=== PATIENT | female | born 1945 | race Caucasian/White ===

== ENCOUNTER → 2020-04-17 12:10 | Outpatient (CLI) | payer MEDICARE, BC, OTHER, SELFPAY ==
[2020-04-17 13:55] LABS: Alanine Aminotransferase 40 IU/L (<35); Albumin 3.8 g/dL (3.5-5.0); Alkaline Phosphatase 64 U/L (38-126); Aspartate Aminotransferase 39 IU/L (14-36); BUN Creatinine Ratio 17.6 (6-22); Bilirubin Total 0.2 mg/dL (0.2-1.3); Blood Urea Nitrogen 15 mg/dL (7-17); Calcium 9.6 mg/dL (8.4-10.2); Carbon Dioxide 32 mmol/L (22-32); Chloride 95 mmol/L (98-107); Estimated Glomerular Filt Rate > 60.0 mL/min (>60); Globulin 3.8 g/dL (1.7-4.1); Glucose 103 mg/dL (80-110); HEMOLYSIS < 15 (0-50); Potassium 4.7 mmol/L (3.4-5.1); Sodium 132 mmol/L (137-145); Total Protein 7.6 g/dL (6.3-8.2)
[2020-04-17 14:01] LABS: NT-proBNP (BNP-Adult 18+) 832 pg/mL (<450)
== END ==
PROVIDERS: PCP Internal Medicine; Referring Provider Internal Medicine Cardiovascular Disease; Visit Provider Internal Medicine Cardiovascular Disease
DX: I25.10 Atherosclerotic heart disease of native coronary artery without angina pectoris (principal); I50.22 Chronic systolic (congestive) heart failure
CPT/HCPCS: 36415; 80053; 83880

== ENCOUNTER 2020-05-18 11:15 | Emergency (ER) | payer MEDICARE, BC, OTHER, SELFPAY ==
--- NOTE | 2020-05-18 11:20 | DI.RAD.S_ITS ---
PROCEDURE: XR ABDOMEN MIN 2V INDICATIONS: poss ingestion of battery TECHNIQUE: 2 views of the abdomen were acquired. COMPARISON: None. FINDINGS: Surgical changes and devices: None. Bowel: No pneumoperitoneum. The bowel gas pattern is normal. There is a metallic structure noted near the midline in the pelvis which may potentially represent an ingested hearing aid. 2 other metallic structures may potentially be ingested, or may be from prior surgery. Soft tissues: No masses; visualized solid organ contours appear normal in size. No suspicious abdominal calcifications. Bones: No suspicious bony abnormalities. IMPRESSION: Question ingested hearing aid. Comment: CT abdomen and pelvis may be helpful to prove whether not there is a metallic hearing aid in the bowel. 2 other metallic structures may potentially be ingested, or may be related to prior surgery. Dictated by: Nolberto Torres M.D. on 05/18/2020 at 11:48 Approved by: Nolberto Torres M.D. on 05/18/2020 at 11:53
--- NOTE | 2020-05-18 11:21 | DI.RAD.S_ITS ---
PROCEDURE: XR CHEST 2V INDICATIONS: poss battery ingestion TECHNIQUE: 2 views of the chest were acquired. COMPARISON: None. FINDINGS: Surgical changes and devices: None. Lungs and pleura: Lungs are clear. No pleural effusions or pneumothorax. Mediastinum: Mediastinal contours are normal. Mild cardiomegaly. Bones and chest wall: No suspicious bony abnormalities. Soft tissues appear unremarkable. Severe bilateral shoulder degenerative change. IMPRESSION: Mild cardiomegaly. No evidence radiopaque foreign body in the chest or upper abdomen. Dictated by: Nolberto Torres M.D. on 05/18/2020 at 11:53 Approved by: Nolberto Torres M.D. on 05/18/2020 at 11:54
[2020-05-18 11:26] VITALS: BP 186/80; PULSE 62; RESP 18; TEMP 36.8; O2SAT 97
--- NOTE | 2020-05-18 12:10 | PC.NURSE ---
states she accidentally swallowed hearing aid. X ray revealed it is in distal colon. Denies abd pain / discomfort. Taking po fluids. No distress.
[2020-05-18 12:25] VITALS: BP 182/78; PULSE 66; RESP 18; O2SAT 98
--- NOTE | 2020-05-18 12:41 | ED_ITS ---
HPI - Skin/Abscess/Foreign Bdy [facility] Last Filed: 05/18/20 13:56> General Chief complaint: Skin/Abscess/Foreign Body Stated complaint: suspects she swallowed hearing aid Time Seen by Provider: 05/18/20 12:08 Source: patient and family Mode of arrival: Ambulatory Limitations: no limitations History of Present Illness HPI narrative: The patient is a 74-year-old female her granddaughter for chief complaint of a possibly swallowed hearing aid. She thinks she swallowed a by accident when she was taking her pills. She denies any fevers nausea vomiting diarrhea. She has had p.o. since. She has not taken her pills today because she is afraid to take them with her hearing aid possibly ingested. She denies any abdominal pain. Show overall feels really well and denies physical complaint. She is concerned about having swallowed the hearing aid. Review of Systems <[facility] - Last Filed: 05/18/20 13:56> Review of Systems Narrative: GENERAL: Denies chills, fatigue, malaise, fever, sweats. HEENT: Denies sinus pain, ear pain, sore throat, difficulty swallowing, dizziness. RESPIRATORY: Denies dyspnea, cough, wheezing, hemoptysis, sputum. CARDIOVASCULAR: Denies chest pain, palpitations, orthopnea, edema, GASTROINTESTINAL: See HPI : Denies dysuria, frequency, incontinence, hematuria, urinary retention. MUSCULOSKELETAL: denies weakness, joint pain, or bony pain SKIN: Denies rash, skin lesions, or other NEUROLOGIC: Denies weakness, headache, numbness, change in speech, confusion, seizures, incoordination. PSYCHIATRIC: No concerning psychosocial issues. 12 point review of systems is negative except for those stated above Patient History <WANDA Kuhn - Last Filed: 05/18/20 13:56> Social History Smoking Status: Never smoker Smoking Status: Never smoker Substance Use Type: does not use Exam <WANDA Kuhn - Last Filed: 05/18/20 13:56> Narrative Exam Narrative: GENERAL: This is a well-nourished, well-developed patient, in no acute distress HEAD: Atraumatic. Normocephalic. No temporal or scalp tenderness. EYES: Pupils equal round and reactive. Extraocular motions intact. No scleral icterus. No injection or drainage. ENT: Nose without bleeding, purulent drainage or septal hematoma. Wearing a mask Airway patent. NECK: Trachea midline. No JVD or lymphadenopathy. Supple, nontender, no meningeal signs. CARDIOVASCULAR: Regular rate and rhythm RESPIRATORY: Clear to auscultation. Breath sounds equal bilaterally. No wheezes, rales, or rhonchi. No cough. No increased respiratory effort. No accessory muscle use. GASTROINTESTINAL: Abdomen soft, non-tender, nondistended. No hepato- splenomegaly, or palpable masses. No guarding. Active bowel sounds all 4 quadrants. EXTREMITIES: No clubbing, cyanosis, or edema. No joint tenderness, effusion, or edema noted. BACK: Nontender without deformity or crepitance. No flank tenderness. NEURO: AOx3. SKIN: No rash or erythema on visible skin Initial Vital Signs Initial Vital Signs: Vital Signs Temperature 98.2 F 05/18/20 11:26 Pulse Rate 62 05/18/20 11:26 Respiratory Rate 18 05/18/20 11:26 Blood Pressure 186/80 H 05/18/20 11:26 Pulse Oximetry 97 05/18/20 11:26 <Janette Mack MD - Last Filed: 05/18/20 20:01> Initial Vital Signs Initial Vital Signs: Vital Signs Temperature 98.2 F 05/18/20 11:26 Pulse Rate 62 05/18/20 11:26 Respiratory Rate 18 05/18/20 11:26 Blood Pressure 186/80 H 05/18/20 11:26 Pulse Oximetry 97 05/18/20 11:26 Scores <RIANNA Kuhn - Last Filed: 05/18/20 13:56> GCS [place] coma scale eye opening: Spontaneous [place] coma scale verbal response: Orientated [place] coma scale motor response: Obey commands [place] coma scale total score: 15 Course <RIANNA Kuhn - Last Filed: 05/18/20 13:56> Orders Ordered: ED Orders 05/18/20 11:20 XR abdomen min 2V Stat 05/18/20 11:21 XR chest 2V Stat Vital Signs Vital signs: Vital Signs - 8 hr 05/18/20 12:25 Pulse Rate 66 Respiratory Rate 18 Blood Pressure 182/78 H Pulse Oximetry 98 <Janette Mack MD - Last Filed: 05/18/20 20:01> Orders Ordered: ED Orders 05/18/20 11:20 XR abdomen min 2V Stat 05/18/20 11:21 XR chest 2V Stat Vital Signs Vital signs: Vital Signs - 8 hr 05/18/20 12:25 Pulse Rate 66 Respiratory Rate 18 Blood Pressure 182/78 H Pulse Oximetry 98 MDM - Skin/Abscess/Foreign Bdy <AMY Kuhn- - Last Filed: 05/18/20 13:56> Imaging Data Abdominal x-ray: Radiologist's Impression: [address] [place] [id number] ReportSigned Patient: Linda Wei [facility]#: [id number]: 1945cct:[id number]/Sex: 74 / FDate of Service: 05/18/20Loc: EDAccession Number: [id number] Procedure: XR abdomen min 2V Ordering Provider: Janette Mack MD PROCEDURE: XR ABDOMEN MIN 2V INDICATIONS: poss ingestion of battery TECHNIQUE: 2 views of the abdomen were acquired. COMPARISON: None. FINDINGS: Surgical changes and devices: None. Bowel: No pneumoperitoneum. The bowel gas pattern is normal. There is a metallic structure noted near the midline in the pelvis which may potentially represent an ingested hearing aid. 2 other metallic structures may potentially be ingested, or may be from prior surgery. Soft tissues: No masses; visualized solid organ contours appear normal in size. No suspicious abdominal calcifications. Bones: No suspicious bony abnormalities. IMPRESSION: Question ingested hearing aid. Comment: CT abdomen and pelvis may be helpful to prove whether not there is a metallic hearing aid in the bowel. 2 other metallic structures may potentially be ingested, or may be related to prior surgery. Dictated by: Nolberto Torres M.D. on 05/18/2020 at 11:48 Approved by: Nolberto Torres M.D. on 05/18/2020 at 11:53 Chest x-ray: Radiologist's Impression: [address] [place] [id number] ReportSigned Patient: Linda Wei [facility]#: [id number]: [id number]:[id number]/Sex: 74 / FDate of Service: 05/18/20Loc: EDAccession Number: [id number] Procedure: XR chest 2V Ordering Provider: Janette Mack MD PROCEDURE: XR CHEST 2V INDICATIONS: poss battery ingestion TECHNIQUE: 2 views of the chest were acquired. COMPARISON: None. FINDINGS: Surgical changes and devices: None. Lungs and pleura: Lungs are clear. No pleural effusions or pneumothorax. Mediastinum: Mediastinal contours are normal. Mild cardiomegaly. Bones and chest wall: No suspicious bony abnormalities. Soft tissues appear unremarkable. Severe bilateral shoulder degenerative change. IMPRESSION: Mild cardiomegaly. No evidence radiopaque foreign body in the chest or upper abdomen. Dictated by: Nolberto Torres M.D. on 05/18/2020 at 11:53 Approved by: Nolberto Torres M.D. on 05/18/2020 at 11:54 MDM Narrative Medical decision making narrative: The patient is a 74-year-old female who presents with a chief complaint of the possibility of having swallowed a hearing aid. X-rays illustrate a hearing aid. X-rays reviewed with Dr. Mack, states nothing further to do. Discussed this at length with the patient and her family member. Discussed coming back to ER for acute concerns such as abdominal pain with fever, inability keep down fluids etcetera. Encouraged follow-up with primary care provider as well as yard attendant. No questions or concerns upon discharge states understanding return precautions as well as follow-up care. Discharge Plan Departure Patient Disposition: Home Clinical Impression: Foreign body, swallowed Qualifiers: Encounter type: initial encounter Qualified Code(s): T18.9XXA - Foreign body of alimentary tract, part unspecified, initial encounter Instructions: DI for Foreign Body, Swallowed-Adult Activity Restrictions/Additional Instructions: Thank you for trusting us with your care today Your x-ray confirms that you have swallowed your hearing aid. However it is low enough that it should pass with no problem. Please follow-up with primary care provider as well as your hearing aid provider Please come back to the emergency department for any acute concerns such as abdominal pain with fever, inability keep down fluids etcetera Referrals: Brittny Connor MD [Primary Care Provider] - <Janette Mack MD - Last Filed: 05/18/20 20:01> Cosign ED Attending Cosimaniature Attestation: I was immediately available in the dep artment for consultation throughout this patient's visit. I agree with documentation as above. Janette Mack MD
== END 2020-05-18 12:27 | disposition home or self-care (01) ==
PROVIDERS: Emergency Provider Nurse Practitioner Family; PCP Internal Medicine
DX: T18.9XXA Foreign body of alimentary tract, part unspecified, initial encounter (principal)
CPT/HCPCS: 71046; 74019; 99283; 99284

== ENCOUNTER 2020-06-03 19:00 | Emergency (ER) | payer MEDICARE, BC, OTHER, SELFPAY ==
[2020-06-03 19:05] VITALS: BP 118/54; PULSE 72; RESP 14; TEMP 36.7; O2SAT 97; BMI 20.9
[2020-06-03 19:10] VITALS: PULSE 73; O2SAT 99
--- NOTE | 2020-06-03 19:10 | DI.RAD.S_ITS ---
PROCEDURE: XR FOOT RT MIN 3V INDICATIONS: foot pain and swelling TECHNIQUE: 3 views of the foot were acquired. COMPARISON: None. FINDINGS: Bones: No fractures or dislocations. No suspicious bony lesions. Joint space narrowing and periarticular osteophyte formation throughout the tarsus and tarsometatarsal joints, as well as the interphalangeal joints of the digits, indicating osteoarthritis. Soft tissues: No tibiotalar joint effusion. Achilles tendon appears normal. IMPRESSION: Multifocal osteoarthritis. No acute fracture. No osseous lesion. If symptoms and/or clinical suspicion for pathology persist, further assessment with repeat, or advanced imaging (e.g., CT, MRI, or bone scan) may be helpful for further assessment. Dictated by: Kelin Casanova M.D. on 06/03/2020 at 19:25 Approved by: Kelin Casanova M.D. on 06/03/2020 at 19:26
[2020-06-03 19:30] VITALS: PULSE 69; O2SAT 96
--- NOTE | 2020-06-03 19:47 | ED.LOWEXIN ---
HPI - Extremity Injury (Lower) General Chief Complaint: Extremity Injury, Lower Stated Complaint: right foot is swelling Time Seen by Provider: 06/03/20 19:04 Source: patient Mode of arrival: Wheelchair Limitations: no limitations History of Present Illness HPI Narrative: 74-year-old female here for evaluation of swelling and redness and discomfort to her right foot. She states that last weekend she started noticing pain in her foot however this was after a period of time where she did some more walking than what she normally does during the day. She denies any specific trauma. Since that time things have been worsening. Describes the pain on the bottom of her foot and across the top of her foot. She has never had gout before. She is not having any fevers. There is no drainage from the area. It is to the point where she is having a difficult time walking. No other joint pain. Related Data Allergies Allergy/AdvReac Type Severity Reaction Status Date / Time ciprofloxacin [From Cipro] Allergy Verified 06/03/20 19:11 Sulfa (Sulfonamide Allergy Verified 06/03/20 19:11 Antibiotics) Review of Systems Constitutional Constitutional: Denies fever(s) and Denies headache(s) ENT Ears, Nose, Mouth, and Throat: Denies headache(s) Musculoskeletal Musculoskeletal: Denies numbness and Denies tingling Comments: Right foot pain Integumentary/Breasts Comments: Redness around the right foot Neurologic Neurologic: Denies headache(s), Denies numbness and Denies tingling Hematologic/Lymphatic On Anticoagulants: No Allergic/Immunologic Allergic/Immunologic: Denies urticaria Patient History Surgical History No pertinent past surgical history Social History Smoking Status: Never smoker Smoking Status: Never smoker alcohol intake frequency: holidays/special occasions only Substance Use Type: does not use Exam Initial Vital Signs Initial Vital Signs: Vital Signs Temperature 98.1 F 06/03/20 19:05 Pulse Rate 72 06/03/20 19:05 Respiratory Rate 14 06/03/20 19:05 Blood Pressure 118/54 L 06/03/20 19:05 Pulse Oximetry 97 06/03/20 19:05 Const General: cooperative and comfortable Cardio Pulses: dorsalis pedis present on the right Skin Other: Patient does have redness across the top of her right midfoot. It is warm to the touch. There are no breaks in the skin. There is no drainage from the area. No blisters. Extrem Other: She has tenderness to palpation along the midfoot on the dorsum and along the medial aspect on the bottom around the arch of her foot. Her ankle is unremarkable. Achilles tendon is unremarkable. Her calf is unremarkable. Toes are unremarkable. Psych Appearance: grossly normal and well kempt Course Orders Ordered: ED Orders 06/03/20 19:10 XR foot RT min 3V Stat Vital Signs Vital signs: Vital Signs - 8 hr 06/03/20 19:05 06/03/20 19:10 06/03/20 19:30 Temperature 98.1 F Pulse Rate 72 73 69 Respiratory Rate 14 Blood Pressure 118/54 L Pulse Oximetry 97 99 96 MDM - Extremity Injury (Lower) Imaging Data Extremity x-ray #1: Radiologist's Impression: [address] [id number] ReportSigned Patient: Linda Wei [facility]#: [id number]: [id number]:[id number]/Sex: 74 / FDate of Service: 06/03/20Loc: EDAccession Number: [id number] Procedure: XR foot RT min 3V Ordering Provider: Jeancarlos Baldwin D.O. PROCEDURE: XR FOOT RT MIN 3V INDICATIONS: foot pain and swelling TECHNIQUE: 3 views of the foot were acquired. COMPARISON: None. FINDINGS: Bones: No fractures or dislocations. No suspicious bony lesions. Joint space narrowing and periarticular osteophyte formation throughout the tarsus and tarsometatarsal joints, as well as the interphalangeal joints of the digits, indicating osteoarthritis. Soft tissues: No tibiotalar joint effusion. Achilles tendon appears normal. IMPRESSION: Multifocal osteoarthritis. No acute fracture. No osseous lesion. If symptoms and/or clinical suspicion for pathology persist, further assessment with repeat, or advanced imaging (e.g., CT, MRI, or bone scan) may be helpful for further assessment. Dictated by: Kelin Casanova M.D. on 06/03/2020 at 19:25 Approved by: Keiln Casanova M.D. on 06/03/2020 at 19:26 MDM Narrative Medical decision making narrative: Your x-ray shows no signs of fracture. She does have some redness and warmth over the area however feel that this is more related to inflammation rather than infection however I did talk with them about this and stated that if her symptoms worsen or do not improve then she should be re-evaluated for this. We did discuss the possibility of gout although she has never had gout in the past and her symptoms do seem to be associated with the midfoot and around the arch rather than her ankle joint or toe joints. Had a long discussion with the patient and her family at bedside regarding the symptoms. The plan will be is for her to continue with conservative treatment to include elevation and ice and anti-inflammatories. She is going to return if the redness worsens or she develops any new symptoms. I suspect that this is just a inflammation related to the increase in walking a couple days ago and an inflammation of her arthritis. She expressed understanding and agreement this plan. Discharge Plan Departure Patient Disposition: Home Clinical Impression: Acute pain of right foot Instructions: How To Perform RICE (Rest, Ice, Compress, Elevate) Activity Restrictions/Additional Instructions: The x-ray in the emergency department did not show any signs of fractures. You definitely have swelling and redness however I feel that this is most likely inflammation and not an infection. Despite this if the redness worsens or starts moving up your leg for few start develop fevers you need to return to the emergency department. Recommend that you keep your foot elevated. Ice it as needed. You can walk on it as tolerated. Also recommend she start on an anti-inflammatory such as Motrin or Naprosyn or Aleve or ibuprofen. Continue to take your reflux medications while your on this medicine. Contact your primary provider for follow-up. Referrals: Brittny Connor MD [Primary Care Provider] -
== END 2020-06-03 19:56 | disposition home or self-care (01) ==
PROVIDERS: Emergency Provider Emergency Medicine; PCP Internal Medicine
DX: M79.671 Pain in right foot (principal)
CPT/HCPCS: 73630; 99283

== ENCOUNTER 2021-04-24 10:26 | Emergency (ER) | payer MEDICARE, BC, OTHER, SELFPAY ==
[2021-04-24] VITALS (9 sets, daily range): BP systolic 106–171; BP diastolic 57–79; PULSE 60–78; RESP 13–22; TEMP 36.8; O2SAT 92–100; BMI 21.1
--- NOTE | 2021-04-24 10:53 | DI.RAD.S_ITS ---
PROCEDURE: XR CHEST 1V INDICATIONS: chest pain TECHNIQUE: One view of the chest was acquired. COMPARISON: [facility], CR, XR CHEST 2V, 05/18/2020, 11:26. FINDINGS: Surgical changes and devices: None. Lungs and pleura: There is hyperinflation and chronic interstitial changes without focal infiltrate, pleural effusion or pneumothorax. Mediastinum: Mediastinal contours appear normal. Heart size is normal. Atherosclerotic vascular calcification noted in the aortic arch. Bones and chest wall: No suspicious bony lesions. Overlying soft tissues appear unremarkable. Generalized decrease in osseous mineralization noted. IMPRESSION: Hyperinflation and chronic interstitial changes Approved by: Zak Alvarado M.D. on 04/24/2021 at 10:55
[2021-04-24 11:37] LABS: Add Manual Diff / Slide Review NO; Basophils Absolute Auto 0 /uL (0-100); Basophils Percent Auto 0.9 % (0-2); Eosinophils Absolute Auto 100 /uL (0-450); Eosinophils Percent Auto 3.4 % (2-4); Hematocrit 30.8 % (36-46); Hemoglobin 10.5 g/dL (12.0-16.0); Lymphocytes Absolute Auto 500 /uL (1100-4500); Lymphocytes Percent Auto 16.9 % (25-40); Mean Corpuscular HGB Conc 33.9 % (30-36); Mean Corpuscular Hemoglobin 33.4 PG (26-34); Mean Corpuscular Volume 98.3 fL (80-100); Monocytes Absolute Auto 400 /uL (0-900); Monocytes Percent Auto 13.3 % (3-14); Neutrophils Absolute Auto 1900 /uL (1500-7000); Neutrophils Percent Auto 65.5 % (50-75); Platelet Count 244 X10^3/uL (150-400); Red Blood Cell Count 3.14 X10^6/uL (4.0-5.2); Red Cell Distribution Width 14.5 % (11.6-14.8); White Blood Cell Count 2.9 X10^3/uL (4.5-11.0)
--- NOTE | 2021-04-24 12:07 | ED_ITS ---
HPI - General Adult General Chief complaint: Shortness of Breath/Dyspnea Stated complaint: high blood pressure, possible blood clot Time Seen by Provider: 04/24/21 10:55 Source: patient and family Mode of arrival: Wheelchair History of Present Illness HPI narrative: 75-year-old woman with a history of autoimmune disease, coronary artery disease with congestive heart failure, significant arthritis, COPD who was complaining about shortness of breath yesterday. She was seen at [facility] and given a nebulized treatment felt significantly better and went home. This morning she was complaining of being unsteady on her feet and her granddaughter, primary caregiver, notes that this has been worsening over the last couple of days. There is no specific focal deficit just increasing instability and near falls. Apparently she was called by her doctor this morning and told that she might have a blood clot in her lungs and recommended that she come to the emergency room for further evaluation. She complains of difficulty sleeping over the last few days because of increased leg jumpiness however this morning she is not noticing palpitations, dyspnea, chest pain, cough. Blood pressure is appropriate. She does not have any lower extremity edema and presents to the emergency room after being contacted by her physician earlier this morning. Records from that visit are not available. Related Data Home Medications Medication Instructions Recorded Confirmed albuterol sulfate 90 mcg/actuation 1 - 2 inh INHALATION Q4HR PRN 04/24/21 04/24/21 aerosol inhaler aspirin 81 mg tablet 81 mg PO DAILY 04/24/21 04/24/21 calcium carbonate 500 mg calcium 1,000 mg PO DAILY 04/24/21 04/24/21 (1,250 mg) tablet carboxymethylcellulose sodium 0.5 1 drp OPHTHALMIC (EYE) BID PRN 04/24/21 04/24/21 % eye drops in a dropperette (Refresh Plus) carvedilol 25 mg tablet 85 mg PO BIDAC 04/24/21 04/24/21 cevimeline 30 mg capsule 30 mg PO TID 04/24/21 04/24/21 cholecalciferol (vitamin D3) 50 50 mcg PO DAILY 04/24/21 04/24/21 mcg (2,000 unit) capsule (Vitamin D3) clotrimazole 10 mg ivan 10 mg MUCOUS MEMBRANE 5XD 04/24/21 04/24/21 fluticasone propionate 50 2 spray INTRANASAL BID 04/24/21 04/24/21 mcg/actuation nasal spray,suspension gabapentin 100 mg capsule 100 mg PO TID 04/24/21 04/24/21 geriatric multivitamin-min 1 tab PO DAILY 04/24/21 04/24/21 hydroxychloroquine 200 mg tablet 200 mg PO BID 04/24/21 04/24/21 ivermectin 1 % topical cream 1 applic TOPICAL DAILY 04/24/21 04/24/21 (Soolantra) lisinopril 40 mg tablet 40 mg PO DAILY 04/24/21 04/24/21 magnesium oxide 500 mg capsule 500 mg PO DAILY 04/24/21 04/24/21 mycophenolate mofetil 500 mg 500 mg PO BID 04/24/21 04/24/21 tablet (CellCept) naproxen 500 mg tablet 500 mg PO BID PRN 04/24/21 04/24/21 nitroglycerin 0.4 mg sublingual 0.4 mg SUBLINGUAL Q5-15M PRN 04/24/21 04/24/21 tablet omeprazole 20 mg tablet,delayed 20 mg PO DAILY 04/24/21 04/24/21 release pramoxine 1 % topical foam 1 applic NC BID PRN 04/24/21 04/24/21 spironolactone 25 mg tablet 25 mg PO DAILY 04/24/21 04/24/21 tumeric 100 mg-carmela 150 mg-olive 1 cap PO DAILY 04/24/21 04/24/21 50 mg-oreg 150 mg-caprylate capsule Allergies Allergy/AdvReac Type Severity Reaction Status Date / Time nickel Allergy Intermediate Redness of Verified 04/24/21 10:47 Skin ciprofloxacin [From Cipro] Allergy Verified 04/24/21 10:47 Sulfa (Sulfonamide Allergy Verified 04/24/21 10:47 Antibiotics) Review of Systems Review of Systems Narrative: Remainder of complete review of systems is otherwise unremarkable except for that included in the HPI. Patient History Medical History Arthritis Autoimmune disease Congestive heart failure COPD (chronic obstructive pulmonary disease) Hypertension Surgical History No pertinent past surgical history Social History Smoking Status: Never smoker Smoking Status: Never smoker alcohol intake frequency: holidays/special occasions only Substance Use Type: does not use Exam Initial Vital Signs Initial Vital Signs: Vital Signs Temperature 98.2 F 04/24/21 10:39 Pulse Rate 78 04/24/21 10:39 Respiratory Rate 18 04/24/21 10:39 Blood Pressure 127/60 04/24/21 10:39 Pulse Oximetry 100 04/24/21 10:39 General: Frail appearing but in no acute distress. Able to cooperate fully with history. HEENT: Moist mucous membranes, normal sclera with reactive pupils, Neck: No JVD, supple Respiratory: Lungs are clear to auscultation, no wheezing no rales no rhonchi. Full and symmetrical air movement Cardiac: Regular rate and rhythm no murmurs no bruits Abdomen: Soft, nontender, good bowel tones, no flank pain Skin: Warm and dry, no rashes Neurologic: Mild global weakness but otherwise Grossly neurologically intact with no obvious asymmetries or abnormalities Extremities: No trauma, well perfused, no lower extremity edema Psych: Cooperative, appropriate insight and affect Course Orders Ordered: ED Orders 04/24/21 10:53 XR chest 1V Stat EKG-12 Lead Stat 04/24/21 11:15 COVID19 -Nasal swab/Pre-Proc Stat Complete Blood Count AUTO DIFF Stat Comprehensive Metabolic Panel Stat D Dimer Stat Lipase Stat Magnesium Stat NT-proBNP (BNP-Adult 18+) Stat Partial Thromboplastin Time Stat Prothrombin Time INR Stat Troponin & CK Cardiac Panel Stat Vital Signs Vital signs: Vital Signs - 8 hr 04/24/21 10:39 04/24/21 11:13 04/24/21 11:15 Temperature 98.2 F Pulse Rate 78 66 65 Respiratory Rate 18 14 14 Blood Pressure 127/60 106/57 L Pulse Oximetry 100 98 98 04/24/21 11:30 Temperature Pulse Rate 63 Respiratory Rate 22 Blood Pressure 118/58 L Pulse Oximetry 96 Medical Decision Making Lab Data Result diagrams: 04/24/21 11:15 04/24/21 11:15 Labs: Lab Results 04/24/21 04/24/21 04/24/21 Range/Units 11:15 11:15 11:15 WBC 2.9 L (4.5-11.0) X10^3/uL RBC 3.14 L (4.0-5.2) X10^6/uL Hgb 10.5 L (12.0-16.0) g/dL Hct 30.8 L (36-46) % MCV 98.3 (80-100) fL MCH 33.4 (26-34) PG MCHC 33.9 (30-36) % RDW 14.5 (11.6-14.8) % Plt Count 244 (150-400) X10^3/uL Neut % (Auto) 65.5 (50-75) % Lymph % (Auto) 16.9 L (25-40) % Ashley % (Auto) 13.3 (3-14) % Eos % (Auto) 3.4 (2-4) % Baso % (Auto) 0.9 (0-2) % Neut # (Auto) 1900 (3204-3385) /uL Lymph # (Auto) 500 L (3137-0886) /uL Ashley # (Auto) 400 (0-900) /uL Eos # (Auto) 100 (0-450) /uL Baso # (Auto) 0 (0-100) /uL D-Dimer 666 H (<230) ng/mL Sodium 127 L (137-145) mmol/L Potassium 4.5 (3.4-5.1) mmol/L Chloride 96 L (98-107) mmol/L Carbon Dioxide 26 (22-32) mmol/L BUN 7 (7-17) mg/dL Creatinine 0.82 (0.52-1.04) mg/dL Estimated GFR > 60.0 (>60) mL/min BUN/Creatinine Ratio 8.5 (6-22) Glucose 95 (80-110) mg/dL Calcium 9.5 (8.4-10.2) mg/dL Magnesium 1.5 L (1.6-2.3) mg/dL Total Bilirubin 0.5 (0.2-1.3) mg/dL AST 27 (14-36) IU/L ALT 11 (<35) IU/L Alkaline Phosphatase 77 (38-126) U/L Total Creatine Kinase 45 (30-135) U/L CK-MB (CK-2) TNP CK-MB (CK-2) Rel Index TNP NT-Pro-B Natriuret Pep (<450) pg/mL Total Protein 7.1 (6.3-8.2) g/dL Albumin 4.0 (3.5-5.0) g/dL Globulin 3.1 (1.7-4.1) g/dL Albumin/Globulin Ratio 1.3 (1.0-2.8) Lipase 89 (23-300) U/L SARS-CoV-2 (PCR) (Negative) 04/24/21 04/24/21 Range/Units 11:15 11:15 WBC (4.5-11.0) X10^3/uL RBC (4.0-5.2) X10^6/uL Hgb (12.0-16.0) g/dL Hct (36-46) % MCV (80-100) fL MCH (26-34) PG MCHC (30-36) % RDW (11.6-14.8) % Plt Count (150-400) X10^3/uL Neut % (Auto) (50-75) % Lymph % (Auto) (25-40) % Ashley % (Auto) (3-14) % Eos % (Auto) (2-4) % Baso % (Auto) (0-2) % Neut # (Auto) (7712-5462) /uL Lymph # (Auto) (7355-3316) /uL Ashley # (Auto) (0-900) /uL Eos # (Auto) (0-450) /uL Baso # (Auto) (0-100) /uL D-Dimer (<230) ng/mL Sodium (137-145) mmol/L Potassium (3.4-5.1) mmol/L Chloride (98-107) mmol/L Carbon Dioxide (22-32) mmol/L BUN (7-17) mg/dL Creatinine (0.52-1.04) mg/dL Estimated GFR (>60) mL/min BUN/Creatinine Ratio (6-22) Glucose (80-110) mg/dL Calcium (8.4-10.2) mg/dL Magnesium (1.6-2.3) mg/dL Total Bilirubin (0.2-1.3) mg/dL AST (14-36) IU/L ALT (<35) IU/L Alkaline Phosphatase (38-126) U/L Total Creatine Kinase (30-135) U/L CK-MB (CK-2) CK-MB (CK-2) Rel Index NT-Pro-B Natriuret Pep 757 H (<450) pg/mL Total Protein (6.3-8.2) g/dL Albumin (3.5-5.0) g/dL Globulin (1.7-4.1) g/dL Albumin/Globulin Ratio (1.0-2.8) Lipase (23-300) U/L SARS-CoV-2 (PCR) Negative (Negative) Imaging Data Chest x-ray: Radiologist's Impression: FINDINGS:? ? Surgical changes and devices:? None.? ? Lungs and pleura:? There is hyperinflation and chronic interstitial changes without focal infiltrate, pleural effusion or pneumothorax. ? Mediastinum:? Mediastinal contours appear normal.? Heart size is normal.? Atherosclerotic vascular calcification noted in the aortic arch. ? Bones and chest wall:? No suspicious bony lesions.? Overlying soft tissues appear unremarkable.? Generalized decrease in osseous mineralization noted. ? IMPRESSION:? Hyperinflation and chronic interstitial changes ? ? ? Approved by: Zak Alvarado M.D. on 04/24/2021 at 10:55? [facility] Narrative Medical decision making narrative: 75-year-old woman who comes in today actually feeling well after brief bit of dyspnea yesterday. Her D-dimer was slightly elevated however still within normal limits for her age at 75 (upper limit would be 770). She has no clinical signs or symptoms of pulmonary embolism and further workup is not felt to be appropriate at this time. Remainder of labs are reassuring. She does mention that she has had some slight dysuria as of last night. Her urine will be sent for micro and if cultures positive she will be contacted at this point I do not think she has a bladder infection Her granddaughter also reports months of diarrhea, starting in April of last year. She uses Imodium fairly regularly and has seen multiple specialists for this. I have recommended that she continue with Imodium and continue with specialty follow-up. At this point there is no evidence of dramatic abnormality that would need hospitalization regarding the chronic diarrhea issue. Sodium level is slightly low she notes that she has been drinking more water and trying to restrict sodium of late. Encouraged her to drink when thirsty but not forcing excessive water. If she continues to have worsening gait instability then rechecking sodium within the next few days may be appropriate and this concerns shared with her granddaughter who understands. At this point she is safe for home discharge Discharge Plan Departure Patient Disposition: Home Clinical Impression: Hyponatremia Instructions: DI for Hyponatremia Activity Restrictions/Additional Instructions: Thank you for coming in today Your blood test looking for a D-dimer was slightly elevated but still within normal ranges when your age is considered. You do not have any clinical signs or symptoms of a blood clot today. Your salt level was slightly low. I would encourage you to drink when you are thirsty but do not force herself to drink excessive water. If you find that you are still feeling increasingly unsteady over the next week, following up with your regular doctor to make sure that the sodium level has improved would be appropriate We did look at your urine today. It does not look like you have a bladder infection however if the culture does show a bladder infection you will be called with appropriate antibiotic prescription given. If you have worsening symptoms, please feel free to return to the ER Prescriptions: No Action albuterol sulfate 90 mcg/actuation HFA aerosol inhaler 1 - 2 inh INHALATION Q4HR PRN (Reason: Wheezing) 0RF Label Comments: Inhale 1-2 puff using inhaler every four hours as needed clotrimazole 10 mg Ivan 10 mg MUCOUS MEMBRANE 5XD 0RF Rx Instructions: up to 5 x day, do not chew carvedilol 25 mg tablet 85 mg PO BIDAC 0RF Label Comments: TAKE 1 TABLET BY MOUTH TWICE DAILY WITH MEALS spironolactone 25 mg Tablet 25 mg PO DAILY 0RF mycophenolate mofetil [CellCept] 500 mg Tablet 500 mg PO BID 0RF calcium carbonate [Calcium 500] 500 mg calcium (1,250 mg) Tablet 1,000 mg PO DAILY 0RF cevimeline 30 mg capsule 30 mg PO TID 0RF Label Comments: TAKE 1 CAPSULE BY MOUTH THREE TIMES DAILY nitroglycerin 0.4 mg Tablet, Sublingual 0.4 mg SUBLINGUAL Q5-15M PRN (Reason: Angina) 0RF Rx Instructions: do not exceed 3 doses per episode aspirin 81 mg Tablet 81 mg PO DAILY 0RF gabapentin 100 mg capsule 100 mg PO TID 0RF Label Comments: TAKE 1 CAPSULE BY MOUTH THREE TIMES DAILY. hydroxychloroquine 200 mg tablet 200 mg PO BID 0RF lisinopril 40 mg Tablet 40 mg PO DAILY 0RF fluticasone propionate 50 mcg/actuation spray,suspension 2 spray INTRANASAL BID 0RF Label Comments: USE 2 SPRAYS IN EACH NOSTRIL EVERY DAY naproxen 500 mg Tablet 500 mg PO BID PRN (Reason: pain / discomfort) 0RF Refresh Plus 0.5 % Dropperette 1 drp OPHTHALMIC (EYE) BID PRN (Reason: Dry Eyes) 0RF geriatric multivitamin-min Tablet 1 tab PO DAILY 0RF pramoxine 1 % Foam 1 applic NC BID PRN (Reason: hemmroid) 0RF magnesium oxide 500 mg Capsule 500 mg PO DAILY 0RF omeprazole 20 mg Tablet,Delayed Release (Dr/Ec) 20 mg PO DAILY 0RF cholecalciferol (vitamin D3) [Vitamin D3] 50 mcg (2,000 unit) Capsule 50 mcg PO DAILY 0RF ivermectin [Soolantra] 1 % Cream 1 applic TOPICAL DAILY 0RF wyzzgpa-wlaa-piqdv-oreg-capryl 100 mg-150 mg- 50 mg-150 mg Capsule 1 cap PO DAILY 0RF Referrals: Brittny Connor MD [Primary Care Provider] -
[2021-04-24 12:11] LABS: COVID19 -Nasal RAPID Negative (Negative)
[2021-04-24 12:20] LABS: Alanine Aminotransferase 11 IU/L (<35); Albumin Globulin Ratio 1.3 (1.0-2.8); Alkaline Phosphatase 77 U/L (38-126); Aspartate Aminotransferase 27 IU/L (14-36); BUN Creatinine Ratio 8.5 (6-22); Bilirubin Total 0.5 mg/dL (0.2-1.3); Blood Urea Nitrogen 7 mg/dL (7-17); Calcium 9.5 mg/dL (8.4-10.2); Carbon Dioxide 26 mmol/L (22-32); Chloride 96 mmol/L (98-107); Creatine Kinase 45 U/L (30-135); Estimated Glomerular Filt Rate > 60.0 mL/min (>60); Globulin 3.1 g/dL (1.7-4.1); Glucose 95 mg/dL (80-110); HEMOLYSIS < 15 (0-50); Lipase 89 U/L (23-300); Magnesium 1.5 mg/dL (1.6-2.3); Potassium 4.5 mmol/L (3.4-5.1); Sodium 127 mmol/L (137-145); Total Protein 7.1 g/dL (6.3-8.2)
[2021-04-24 12:24] LABS: D Dimer 666 ng/mL (<230)
[2021-04-24 12:29] LABS: NT-proBNP (BNP-Adult 18+) 757 pg/mL (<450)
[2021-04-24 12:31] LABS: Troponin I 0.014 ng/mL (0.01-0.034)
[2021-04-24 12:34] LABS: INR 1.1 (0.9-1.3); Prothrombin Time 12.3 SECONDS (10.1-12.7)
[2021-04-24 12:37] LABS: PTT Partial Thromboplastin Tim 30 SECONDS (26.4-36.2)
== END 2021-04-24 13:04 | disposition home or self-care (01) ==
PROVIDERS: Emergency Provider Emergency Medicine; PCP Internal Medicine
DX: E87.1 Hypo-osmolality and hyponatremia (principal); Z20.822 Contact with and (suspected) exposure to COVID-19
CPT/HCPCS: 36415; 71045; 80053; 81003; 82550; 83690; 83735; 83880; 84484; 85025; 85379; 85610; 85730; 87635; 93005; 99284; C9803

== ENCOUNTER 2021-06-03 17:18 | Inpatient (IN) | payer MEDICARE, BC, OTHER, SELFPAY ==
[2021-06-03] VITALS (12 sets, daily range): BP systolic 93–140; BP diastolic 61–77; PULSE 66–128; RESP 16–39; TEMP 36.5–37.2; O2SAT 95–99; BMI 20.2
[2021-06-03 17:57] LABS: Bacteria Urine Occasional (0-1); RBC Urine 5-10/HPF (0-5/HPF); WBC Urine 1-5/HPF (0-5/HPF)
--- NOTE | 2021-06-03 18:19 | DI.RAD.S_ITS ---
PROCEDURE: XR CHEST 1V INDICATIONS: altered, weak TECHNIQUE: One view of the chest was acquired. COMPARISON: [facility], CT, CT HIGH RESOLUTION CHEST, 09/15/2020, 14:14. [facility], CR, XR CHEST 1V, 04/24/2021, 11:27. [facility], CR, XR CHEST 2V, 05/18/2020, 11:26. FINDINGS: Surgical changes and devices: None. Lungs and pleura: Lungs appear clear. Prominent lung volumes. No pleural effusions or pneumothorax. Mediastinum: Mediastinal contours appear unchanged. Heart size is prominent. Bones and chest wall: No suspicious bony lesions. Overlying soft tissues appear unremarkable. IMPRESSION: Prominent lung volumes. Lungs appear clear. Prominent heart size. Dictated by: Mikel Bustos M.D. on 06/03/2021 at 19:21 Approved by: Mikel Bustos M.D. on 06/03/2021 at 19:24
--- NOTE | 2021-06-03 18:19 | DI.CT.S_ITS ---
PROCEDURE: CT HEAD/BRAIN WO CON INDICATIONS: altered TECHNIQUE: Noncontrast 4.5 mm thick angled axial sections acquired from the foramen magnum to the vertex, with coronal and sagittal reformats. For radiation dose reduction, the following was used: automated exposure control, adjustment of mA and/or kV according to patient size. COMPARISON: None. FINDINGS: Image quality: Excellent. CSF spaces: Basal cisterns are patent. No extra-axial fluid collections. Ventricles are normal in size and shape. Brain: No midline shift. No intracranial masses or hemorrhage. No area of hypodensity in a large vascular distribution to suggest acute infarction. Periventricular hypodensity consistent with chronic microvascular ischemic change. Age-related parenchymal loss. Skull and face: Calvarium and visualized facial bones are intact, without suspicious lesions. Sinuses: Visualized sinuses and mastoids are clear. IMPRESSION: No acute intracranial abnormality. Dictated by: Mikel Bustos M.D. on 06/03/2021 at 18:46 Approved by: Mikel Bustos M.D. on 06/03/2021 at 18:48
--- NOTE | 2021-06-03 18:21 | ED_ITS ---
HPI - Altered Mental Status General Chief Complaint: Altered Mental Status Stated Complaint: UTI, delusional Time Seen by Provider: 06/03/21 18:04 Source: patient Mode of arrival: Wheelchair History of Present Illness HPI narrative: 75-year-old female Nonsmoker with history of COPD, hypertension, congestive heart failure presents with family for the evaluation of altered mental status over the past few days which is demonstrated by auditory and visual hallucinations. She lives at home alone but has had family staying with her for the past few days because she has been so confused and acting inappropriately. She is in the process of being treated for urinary tract infection with nitrofurantoin. She has had subjective fever and perhaps chills. She has had nausea but denies any vomiting. She denies any runny nose, sore throat or cough. She has no chest pain or shortness of breath. Though she has demonstrated evidence of dementia over the past year there has been a rapid change management administrator the past few days Related Data Home Medications Medication Instructions Recorded Confirmed albuterol sulfate 90 mcg/actuation 1 - 2 inh INHALATION Q4HR PRN 04/24/21 aerosol inhaler aspirin 81 mg tablet 81 mg PO DAILY 04/24/21 06/03/21 calcium carbonate 500 mg calcium 1,000 mg PO DAILY 04/24/21 06/03/21 (1,250 mg) tablet carboxymethylcellulose sodium 0.5 1 drp OPHTHALMIC (EYE) BID PRN 04/24/21 06/03/21 % eye drops in a dropperette (Refresh Plus) carvedilol 25 mg tablet 85 mg PO BIDAC 04/24/21 06/03/21 cevimeline 30 mg capsule 30 mg PO TID 04/24/21 06/03/21 cholecalciferol (vitamin D3) 50 50 mcg PO DAILY 04/24/21 06/03/21 mcg (2,000 unit) capsule (Vitamin D3) clotrimazole 10 mg ivan 10 mg MUCOUS MEMBRANE 5XD 04/24/21 06/03/21 fluticasone propionate 50 2 spray INTRANASAL BID 04/24/21 06/03/21 mcg/actuation nasal spray,suspension gabapentin 100 mg capsule 100 mg PO TID 04/24/21 06/03/21 geriatric multivitamin-min 1 tab PO DAILY 04/24/21 06/03/21 hydroxychloroquine 200 mg tablet 200 mg PO BID 04/24/21 06/03/21 ivermectin 1 % topical cream 1 applic TOPICAL DAILY 04/24/21 06/03/21 (Soolantra) lisinopril 40 mg tablet 40 mg PO DAILY 04/24/21 06/03/21 magnesium oxide 500 mg capsule 500 mg PO DAILY 04/24/21 06/03/21 mycophenolate mofetil 500 mg 500 mg PO BID 04/24/21 06/03/21 tablet (CellCept) nitroglycerin 0.4 mg sublingual 0.4 mg SUBLINGUAL Q5-15M PRN 04/24/21 06/03/21 tablet omeprazole 20 mg tablet,delayed 20 mg PO DAILY 04/24/21 06/03/21 release pramoxine 1 % topical foam 1 applic OR BID PRN 04/24/21 06/03/21 spironolactone 25 mg tablet 25 mg PO DAILY 04/24/21 06/03/21 tumeric 100 mg-carmela 150 mg-olive 1 cap PO DAILY 04/24/21 06/03/21 50 mg-oreg 150 mg-caprylate capsule nitrofurantoin 100 mg PO 06/03/21 monohydrate/macrocrystals 100 mg capsule Allergies Allergy/AdvReac Type Severity Reaction Status Date / Time nickel Allergy Intermediate Redness of Verified 04/24/21 10:47 Skin ciprofloxacin [From Cipro] Allergy Verified 04/24/21 10:47 Sulfa (Sulfonamide Allergy Verified 04/24/21 10:47 Antibiotics) Review of Systems Review of Systems Narrative: GENERAL: Denies chills, fatigue, malaise, fever, sweats. HEENT: Denies sinus pain, ear pain, sore throat, difficulty swallowing, dizz iness. RESPIRATORY: Denies dyspnea, cough, wheezing, hemoptysis, sputum. CARDIOVASCULAR: Denies chest pain, palpitations, orthopnea, edema, GASTROINTESTINAL: Denies nausea, vomiting, abdominal pain, diarrhea, constipation, melena. : Denies dysuria, frequency, incontinence, hematuria, urinary retention. MUSCULOSKELETAL: denies weakness, joint pain, or bony pain SKIN: Denies rash, skin lesions, or other NEUROLOGIC: Denies weakness, headache, numbness, change in speech, confusion, seizures, incoordination. PSYCHIATRIC: No concerning psychosocial issues. 12 point review of systems is negative except for those stated above Patient History Medical History Arthritis Autoimmune disease Congestive heart failure COPD (chronic obstructive pulmonary disease) Hypertension Surgical History No pertinent past surgical history Social History household members: none Smoking Status: Never smoker alcohol intake: former Smoking Status: Never smoker alcohol intake frequency: holidays/special occasions only Substance Use Type: does not use Exam Narrative Exam Narrative: GENERAL: [75 year old patient appears stated age. Frail and weak, confused. GCS 14 HEAD: Atraumatic. Normocephalic. EYES: Pupils equal round and reactive. Extraocular motions intact. No scleral icterus. No injection or drainage. ENT: Dry mucous membranes Nose without bleeding, purulent drainage. Throat without erythema, tonsillar hypertrophy or exudate. Airway patent. NECK: Trachea midline. Non tender CARDIOVASCULAR: Regular rate and rhythm without murmurs, gallops, or rubs. RESPIRATORY: Clear to auscultation. Breath sounds equal bilaterally. No wheezes, rales, or rhonchi. GASTROINTESTINAL: Abdomen soft, non-tender, nondistended. EXTREMITIES: No edema or joint tenderness. BACK: Nontender without deformity or crepitance. No flank tenderness. NEURO: Cranial nerves 2-12 grossly intact SKIN: No rash or erythema of visible areas Initial Vital Signs Initial Vital Signs: Vital Signs Temperature 98.9 F 06/03/21 17:24 Pulse Rate 75 06/03/21 17:24 Respiratory Rate 16 06/03/21 17:24 Blood Pressure 140/77 06/03/21 17:24 Pulse Oximetry 99 06/03/21 17:24 Course Orders Ordered: ED Orders 06/03/21 19:53 XR hand LT min 3V Stat 06/03/21 20:00 COVID19 - ADMIT (TUBING MACHINE TENDER swab/PCR) Stat Acetaminophen (Acetaminophen 325 Mg Tablet) 650 mg PO Q6HR PRN PRN Reason: pain Last Admin: 06/03/21 22:48 Dose: 650 mg Documented by: PHIL Enoxaparin Sodium (Enoxaparin 40 Mg/0.4 Ml Syringe) 40 mg SUBCUT DAILY JANNA Sodium Chloride (Normal Saline 0.9%) 1,000 mls @ 150 mls/hr IV CONT JANNA Last Admin: 06/03/21 22:48 Dose: 150 mls/hr Documented by: Infusion: 06/03/21 22:48 Dose: 0 mls/hr Documented by: Admin: 06/03/21 18:38 Dose: 150 mls/hr Documented by: PREET Ceftriaxone Sodium 1,000 mg/ (Sodium Chloride) 100 mls @ 200 mls/hr IV Q24H JANNA Last Infusion: 06/04/21 00:02 Dose: 0 mls/hr Documented by: Admin: 06/03/21 22:50 Dose: 200 mls/hr Documented by: PHIL Ondansetron HCl (Ondansetron 4 Mg/2 Ml Inj) 4 mg IV Q8HR PRN PRN Reason: Nausea And Vomiting Vital Signs Vital signs: Vital Signs - 8 hr 06/03/21 20:30 06/03/21 21:00 Pulse Rate 70 71 Respiratory Rate 30 H 30 H Pulse Oximetry 96 97 MDM - Altered Mental Status Lab Data Result diagrams: 06/03/21 18:22 06/03/21 18:22 Labs: Lab Results 06/03/21 06/03/21 06/03/21 Range/Units 17:49 18:22 18:22 WBC 5.3 (4.5-11.0) X10^3/uL RBC 2.80 L (4.0-5.2) X10^6/uL Hgb 9.5 L (12.0-16.0) g/dL Hct 27.7 L (36-46) % MCV 99.0 (80-100) fL MCH 33.7 (26-34) PG MCHC 34.1 (30-36) % RDW 13.1 (11.6-14.8) % Plt Count 233 (150-400) X10^3/uL Neut % (Auto) 68.7 (50-75) % Lymph % (Auto) 14.4 L (25-40) % [place] % (Auto) 12.5 (3-14) % Eos % (Auto) 3.7 (2-4) % Baso % (Auto) 0.7 (0-2) % Neut # (Auto) 3600 (5539-0382) /uL Lymph # (Auto) 800 L (9992-7054) /uL [place] # (Auto) 700 (0-900) /uL Eos # (Auto) 200 (0-450) /uL Baso # (Auto) 0 (0-100) /uL Sodium 129 L (137-145) mmol/L Potassium 4.4 (3.4-5.1) mmol/L Chloride 95 L (98-107) mmol/L Carbon Dioxide 27 (22-32) mmol/L BUN 14 (7-17) mg/dL Creatinine 1.01 (0.52-1.04) mg/dL Estimated GFR 53.1 L (>60) mL/min BUN/Creatinine Ratio 13.9 (6-22) Glucose 95 (80-110) mg/dL Lactate (0.7-2.1) mmol/L Calcium 8.9 (8.4-10.2) mg/dL Total Bilirubin 0.2 (0.2-1.3) mg/dL AST 26 (14-36) IU/L ALT 11 (<35) IU/L Alkaline Phosphatase 68 (38-126) U/L Total Creatine Kinase 55 (30-135) U/L CK-MB (CK-2) TNP CK-MB (CK-2) Rel Index TNP Troponin I < 0.012 (0.01-0.034) ng/mL Total Protein 6.9 (6.3-8.2) g/dL Albumin 3.9 (3.5-5.0) g/dL Globulin 3.0 (1.7-4.1) g/dL Albumin/Globulin Ratio 1.3 (1.0-2.8) TSH (0.47-4.68) uIU/mL Prolactin 12.6 (3.0-18.6) ng/mL Urine RBC 5-10/hpf H (0-5/HPF) Urine WBC 1-5/hpf (0-5/HPF) Urine Bacteria Occasional (0-1) (None) Ur Culture Indicated? Culture not indicate Salicylates < 1.0 (<20) mg/dL Acetaminophen < 10 L (10-30) ug/mL Ethyl Alcohol < 10 ( - 10) mg/dL SARS-CoV-2 (PCR) (Negative) 06/03/21 06/03/21 06/03/21 Range/Units 18:22 18:22 20:00 WBC (4.5-11.0) X10^3/uL RBC (4.0-5.2) X10^6/uL Hgb (12.0-16.0) g/dL Hct (36-46) % MCV (80-100) fL MCH (26-34) PG MCHC (30-36) % RDW (11.6-14.8) % Plt Count (150-400) X10^3/uL Neut % (Auto) (50-75) % Lymph % (Auto) (25-40) % [place] % (Auto) (3-14) % Eos % (Auto) (2-4) % Baso % (Auto) (0-2) % Neut # (Auto) (1785-5950) /uL Lymph # (Auto) (8125-1926) /uL Hudson # (Auto) (0-900) /uL Eos # (Auto) (0-450) /uL Baso # (Auto) (0-100) /uL Sodium (137-145) mmol/L Potassium (3.4-5.1) mmol/L Chloride (98-107) mmol/L Carbon Dioxide (22-32) mmol/L BUN (7-17) mg/dL Creatinine (0.52-1.04) mg/dL Estimated GFR (>60) mL/min BUN/Creatinine Ratio (6-22) Glucose (80-110) mg/dL Lactate 1.0 (0.7-2.1) mmol/L Calcium (8.4-10.2) mg/dL Total Bilirubin (0.2-1.3) mg/dL AST (14-36) IU/L ALT (<35) IU/L Alkaline Phosphatase (38-126) U/L Total Creatine Kinase (30-135) U/L CK-MB (CK-2) CK-MB (CK-2) Rel Index Troponin I (0.01-0.034) ng/mL Total Protein (6.3-8.2) g/dL Albumin (3.5-5.0) g/dL Globulin (1.7-4.1) g/dL Albumin/Globulin Ratio (1.0-2.8) TSH 2.65 (0.47-4.68) uIU/mL Prolactin (3.0-18.6) ng/mL Urine RBC (0-5/HPF) Urine WBC (0-5/HPF) Urine Bacteria (None) Ur Culture Indicated? Salicylates (<20) mg/dL Acetaminophen (10-30) ug/mL Ethyl Alcohol ( - 10) mg/dL SARS-CoV-2 (PCR) Negative (Negative) Point of Care Testing Glucose POC 75 Urine Dip Bedside Urine Glucose Negative Bedside Urine Bilirubin - Negative Bedside Urine Ketone - Negative Urine Specific [place] 1.015 Bedside Urine Occult Blood - Negative Bedside Urine pH 6.0 Bedside Urine Protein - Negative Bedside Urine Urobilinogen +/- 1mg Bedside Urine Nitrite - Negative Bedside Urine Leukocytes +/- [address] scan - head: Radiologist's Impression: Launch?[address] [address] [address] Scan Report Signed Patient: Linda Wei MR#: [id number] : 1945 Acct:[id number] Age/Sex: 75 / F Date of Service: 06/03/21 Loc: ED Accession Number: [id number] ?? Procedure: CT head/brain wo con Ordering Provider: Hadley Warner D.O. PROCEDURE:? CT HEAD/BRAIN WO CON ? INDICATIONS:? altered ? TECHNIQUE:? Noncontrast 4.5 mm thick angled axial sections acquired from the foramen magnum to the vertex, with coronal and sagittal reformats.? For radiation dose reduction, the following was used:? automated exposure control, adjustment of mA and/or kV according to patient size.? ? COMPARISON:? None. ? FINDINGS:? Image quality:? Excellent.? ? CSF spaces:? Basal cisterns are patent.? No extra-axial fluid collections.? Ventricles are normal in size and shape.? ? Brain:? No midline shift.? No intracranial masses or hemorrhage.? No area of hypodensity in a large vascular distribution to suggest acute infarction. Periventricular hypodensity consistent with chronic microvascular ischemic change. Age-related parenchymal loss. ? Skull and face:? Calvarium and visualized facial bones are intact, without suspicious lesions.? ? Sinuses:? Visualized sinuses and mastoids are clear.? ? IMPRESSION:? No acute intracranial abnormality. ? ? Dictated by: Mikel Bustos M.D. on 06/03/2021 at 18:46 ? ? Approved by: Mikel Bustos M.D. on 06/03/2021 at 18:48 ? MDM Narrative Medical decision making narrative: Patient presents with family who were concerned about her rapid deterioration over the past few days. Though she has had a slow down slide, likely due to early dementia over the past year there has been a significant change management administrator the past few days. Historically she lives at home alone and over the past few days she has had visual and auditory hallucinations has been quite confused and is vastly departed from her baseline. There are no focal findings and CT of head shows no stroke. She is being treated with nitrofurantoin for a UTI which would certainly be contributing to her acute delirium and metabolic encephalopathy. There is no other obviously reversible cause Discharge Plan Departure Patient Disposition: Admitted as Observation Clinical Impression: Acute delirium Admit Date/Time: 06/03/21 21:08 Admit Provider: Colton Flor
[2021-06-03] MEDS: SODIUM CHLORIDE 0.9% 1,000 ML 150 ML IV ×2 (18:38→22:48)
[2021-06-03 18:49] LABS: Add Manual Diff / Slide Review NO; Basophils Absolute Auto 0 /uL (0-100); Basophils Percent Auto 0.7 % (0-2); Eosinophils Absolute Auto 200 /uL (0-450); Eosinophils Percent Auto 3.7 % (2-4); Hematocrit 27.7 % (36-46); Hemoglobin 9.5 g/dL (12.0-16.0); Lymphocytes Absolute Auto 800 /uL (1100-4500); Lymphocytes Percent Auto 14.4 % (25-40); Mean Corpuscular HGB Conc 34.1 % (30-36); Mean Corpuscular Hemoglobin 33.7 PG (26-34); Monocytes Absolute Auto 700 /uL (0-900); Monocytes Percent Auto 12.5 % (3-14); Neutrophils Absolute Auto 3600 /uL (1500-7000); Neutrophils Percent Auto 68.7 % (50-75); Platelet Count 233 X10^3/uL (150-400); Red Cell Distribution Width 13.1 % (11.6-14.8); White Blood Cell Count 5.3 X10^3/uL (4.5-11.0)
[2021-06-03 18:54] LABS: Acetaminophen < 10 ug/mL (10-30); Alanine Aminotransferase 11 IU/L (<35); Albumin 3.9 g/dL (3.5-5.0); Albumin Globulin Ratio 1.3 (1.0-2.8); Alkaline Phosphatase 68 U/L (38-126); Aspartate Aminotransferase 26 IU/L (14-36); BUN Creatinine Ratio 13.9 (6-22); Bilirubin Total 0.2 mg/dL (0.2-1.3); Blood Urea Nitrogen 14 mg/dL (7-17); Calcium 8.9 mg/dL (8.4-10.2); Carbon Dioxide 27 mmol/L (22-32); Chloride 95 mmol/L (98-107); Creatine Kinase 55 U/L (30-135); Estimated Glomerular Filt Rate 53.1 mL/min (>60); Ethanol (ETOH) < 10 mg/dL; Glucose 95 mg/dL (80-110); HEMOLYSIS < 15 (0-50); Potassium 4.4 mmol/L (3.4-5.1); Salicylate < 1.0 mg/dL (<20); Sodium 129 mmol/L (137-145); Total Protein 6.9 g/dL (6.3-8.2)
[2021-06-03 19:05] LABS: Troponin I < 0.012 ng/mL (0.01-0.034)
[2021-06-03 19:10] LABS: Prolactin 12.6 ng/mL (3.0-18.6)
--- NOTE | 2021-06-03 19:37 | CM.DANOTE ---
DCP Assessment Note Patient is 75 y/o female who presents to ED due to concern for Altered Mental Status. Patient recently went to PCP and was dx with UTI, granddaughter states she has noticed a significant change in behavior in the last few days since taking antibiotics. Patient's PCP is Dr. Brittny Connor and per patient and granddaughter patient also sees Gaming Surveillance Observer Dr. [place]. Patient has Blue Cross Federal, Medicare and for Life insurances. Patient presents as A/O to self and location. Patient endorses significant increase in visual and auditory hallucinations and states she does not feel safe at home. Patient states she feels safe at this hospital. Present in room is patient's granddaughter who endorses that she, her or daughter has been staying with patient to ensure her safety and wellbeing. Granddaughter states she called [facility] to inquire about openings for patient and patient was added to the wait list. FIELD ASSOCIATE provides grand daughter the [place] [facility] guide. Patient endorses seeing little guys trying to assault her, hearing loud music, seeing writing on the crawford. Patient has told family that she believes there are demons in the house and patient has tried to get rid of them by spraying cleaning solutions everywhere. Granddaughter states that patient has been seeing family members in her home and having hours long conversations with herself. It was reported that patient is fearful that neighbors or family members are breaking into her home and patient fears for her safety. FIELD ASSOCIATE discusses family's plan for next steps and it is indicated that they would like to seek a rat exterminator higher level of care for patient. Patient denies visual and auditory hallucinations currently. Patient indicates concern that something is wrong with her. Patient no longer drives and stopped driving a few weeks ago. Patient has been independent at home primarily prior to the last few weeks. It is reported by patient and granddaughter that patient has had recent GLFs and an increase in the last few days. It was reported that patient recently turned on her oven without cooking anything. At this time patient is pending admission to acute care due to her Acute Delerium. ED provider Dr. Warner is recommending admission and Hospitalist to review patient. Plan: Further medical evaluation, pending admission, DCP to f/u with POC and with family. SD Carlos Discharge Planning/Care Management CM Discharge Assessment Start: 06/03/21 19:34 Freq: Status: Active Protocol: Document 06/03/21 19:34 LN (Rec: 06/03/21 19:37 LN [id number]) Discharge Planning Assessment Assigned [place] Examiner SD Roy Advance Directives? No History Provided By Patient,Family Member,Medical Record Has Patient been admitted in last 30 No days? Prior Living Arrangements House Household Members none Comment Patient's family members have been staying with for the past weeks since altered mental status. Type of transporation used prior to Relies on Others admit Independent with ADL's Yes Is patient alert and oriented? No: A/O to place and self Additional Comment SNF vs Home Health. Family currently seeking out [facility] care options. Review Status In Process Please Provide Date Initial DC 06/03/21 Assessment Was Performed
[2021-06-03 19:41] LABS: Thyroid Stimulating Hormone 2.65 uIU/mL (0.47-4.68)
--- NOTE | 2021-06-03 19:53 | DI.RAD.S_ITS ---
PROCEDURE: XR HAND LT 2V INDICATIONS: fall, injury TECHNIQUE: 3 views of the hand acquired. COMPARISON: None. FINDINGS: Bones: There is generalized osteopenia. A mildly displaced oblique fracture of the 5th metacarpal shaft is seen with mild radial and proximal displacement of the distal shaft fragment. Scattered degenerative changes seen throughout the wrist and fingers, most prominent at the 1st carpometacarpal joint. Carpal bones are normally aligned. No suspicious bony lesions. Soft tissues: Diffuse chondrocalcinosis; differential diagnosis includes but is not limited to CPPD, hyperparathyroidism, and hemochromatosis. Soft tissue edema is seen in the hand. IMPRESSION: Mildly displaced oblique fracture of the 5th metacarpal shaft. Dictated by: Kamari Montes M.D. on 06/03/2021 at 21:25 Approved by: Kamari Montes M.D. on 06/03/2021 at 21:26
[2021-06-03 20:48] LABS: COVID19 - ADMIT (NP swab/PCR) Negative (Negative)
--- NOTE | 2021-06-03 22:34 | DI.MRI.S_ITS ---
PROCEDURE: MR HEAD/BRAIN WO CON INDICATIONS: new delirium, hallucinations TECHNIQUE: Non-contrast axial T1 spin echo, axial T2 fast spin echo, sagittal and axial FLAIR, coronal T2 fast spin echo, axial gradient echo, axial diffusion and ADC through the brain. COMPARISON: None. FINDINGS: Image quality: Excellent. CSF spaces: Ventricles appear symmetric in size and shape. Basal cisterns are patent. No extra-axial fluid collections. Brain: No intracranial bleeds or mass effects. There is cerebral volume loss for age. There are periventricular and deep white matter chronic small vessel ischemic changes. Brainstem appears normal. Diffusion-weighted images show no acute ischemic insults. No chronic ischemic insults. Normal intravascular flow voids are present. Skull and face: Calvarial bone marrow is normal in signal. Orbits are normal. Sinuses: Sinuses and mastoids are clear. IMPRESSION: No acute intracranial finding. Global cerebral volume loss and moderate chronic microvascular ischemic changes Dictated by: Mamadou Stoner M.D. on 06/04/2021 at 10:20 Approved by: Mamadou Stoner M.D. on 06/04/2021 at 10:21
[2021-06-03] MEDS: ACETAMINOPHEN 325 MG TABLET 650 MG PO (22:48)
[2021-06-03] MEDS: cefTRIAXone 1,000 MG in SODIUM CHLORIDE 0.9% 100 ML 200 ML IV (22:50)
[2021-06-04] VITALS (8 sets, daily range): BP systolic 131–168; BP diastolic 54–80; PULSE 63–87; RESP 16–18; TEMP 36.1–37.2; O2SAT 96–98
--- NOTE | 2021-06-04 00:05 | PC.ADMIT ---
[address] Admission Note: Admitted to unit from ED, Granddaughter Tia at bedside who provided the majority of patient history and home medication information. Patient A/O x3, able to orient to room and general situation. Bilateral hearing aides on bedside table. Bed alarm on and call light within reach. The patient,Linda Wei,75 y/o, was given written information regarding hospital policies, unit procedures and contact persons. Patient's smoking status: Never smoker. Vital Signs - 8 hr 06/03/21 17:24 06/03/21 18:16 06/03/21 18:42 Temperature 98.9 F Pulse Rate 75 80 66 Respiratory Rate 16 16 Blood Pressure 140/77 138/74 Pulse Oximetry 99 96 96 06/03/21 18:44 06/03/21 18:45 06/03/21 19:00 Temperature Pulse Rate 67 67 71 Respiratory Rate 18 17 39 H Blood Pressure 140/72 133/74 Pulse Oximetry 97 98 97 06/03/21 19:30 06/03/21 20:00 06/03/21 20:30 Temperature Pulse Rate 72 128 H 70 Respiratory Rate 33 H 30 H 30 H Blood Pressure Pulse Oximetry 95 96 96 06/03/21 21:00 06/03/21 21:30 06/03/21 22:43 Temperature 97.7 F Pulse Rate 71 70 78 Respiratory Rate 30 H 18 Blood Pressure 93/61 Pulse Oximetry 97 96 98
[2021-06-04 05:33] LABS: Add Manual Diff / Slide Review NO; Basophils Absolute Auto 0 /uL (0-100); Basophils Percent Auto 0.7 % (0-2); Eosinophils Absolute Auto 200 /uL (0-450); Eosinophils Percent Auto 5.8 % (2-4); Hematocrit 23.4 % (36-46); Hemoglobin 7.9 g/dL (12.0-16.0); Lymphocytes Absolute Auto 600 /uL (1100-4500); Mean Corpuscular HGB Conc 33.7 % (30-36); Mean Corpuscular Hemoglobin 33.5 PG (26-34); Mean Corpuscular Volume 99.4 fL (80-100); Monocytes Absolute Auto 500 /uL (0-900); Monocytes Percent Auto 15.5 % (3-14); Neutrophils Absolute Auto 1900 /uL (1500-7000); Platelet Count 187 X10^3/uL (150-400); Red Blood Cell Count 2.35 X10^6/uL (4.0-5.2); Red Cell Distribution Width 13.4 % (11.6-14.8); White Blood Cell Count 3.2 X10^3/uL (4.5-11.0)
[2021-06-04 05:39] LABS: Blood Urea Nitrogen 10 mg/dL (7-17); Calcium 8.2 mg/dL (8.4-10.2); Carbon Dioxide 29 mmol/L (22-32); Chloride 100 mmol/L (98-107); Estimated Glomerular Filt Rate > 60.0 mL/min (>60); Glucose 78 mg/dL (80-110); HEMOLYSIS < 15 (0-50); Potassium 3.9 mmol/L (3.4-5.1); Sodium 128 mmol/L (137-145)
[2021-06-04] MEDS: SODIUM CHLORIDE 0.9% 1,000 ML 150 ML IV (05:56)
--- NOTE | 2021-06-04 06:29 | PM.HP.1 ---
History of Present Illness History of Present Illness Date Patient Seen: 06/03/21 Time Patient Seen: 21:00 Chief complaint: UTI, delusional Narrative: Ms. Wei is a 75W with PMH Sjogren's, CHF, COPD, HTN who presents with altered mental status. Per family at bedside she has been having slow cognitive decline chronically. She was recently diagnosed with a UTI and started on Macrobid. She has reportedly had subjective fevers and chills and nausea. Most notably she has had quite descriptive visual and auditory hallucinations that have occurred only within the last 2-3 days. She is aware at times these are hallucinations, and at other times she is quite confused. No chest pain, shortness of breath. She has had diarrhea. She notes hitting her hand when trying to brace herself for being unbalanced. In the ED workup was done, vitals notable for slightly elevated blood pressure. Labs notable for Hgb 9.5, na 129, creatinine 1.01. Trop negative. UA showed 5-10 WBC, EtOH negative. Lactate 1.0. TSH 2.65. COVID negative. Ct head showed no acute process. Hand xray showed mildly displaced oblique fracture of the 5th metacarpal shaft. She ws given fluids and antibiotics and admitted for further treatment. Family history: denies history of autoimmune disease, unable to provide further details due to acute delirium Patient History Medical History Arthritis Autoimmune disease Congestive heart failure COPD (chronic obstructive pulmonary disease) Hypertension Surgical History No pertinent past surgical history Family & Social History Social History: household members none Prior Living Arrangements House Safety & Behavioral: Feels Safe in Current Yes Environment Been Physically Hurt or No Threatened By a Person Suicidal Ideation Description None Suicide Plan Description No Plan Tobacco & Substance use: Smoking Status Never smoker alcohol intake former alcohol intake frequency holiday/special occasion Substance Use Type does not use Meds Home Medications and Allergies Home Medications Medication Instructions Recorded Confirmed Type albuterol sulfate 90 mcg/actuation 1 - 2 inh INHALATION Q4HR PRN 04/24/21 06/03/21 History aerosol inhaler aspirin 81 mg tablet 81 mg PO DAILY 04/24/21 06/03/21 History calcium carbonate 500 mg calcium 1,000 mg PO DAILY 04/24/21 06/03/21 History (1,250 mg) tablet carboxymethylcellulose sodium 0.5 1 drp OPHTHALMIC (EYE) BID PRN 04/24/21 06/03/21 History % eye drops in a dropperette (Refresh Plus) carvedilol 25 mg tablet 85 mg PO BIDAC 04/24/21 06/03/21 History cevimeline 30 mg capsule 30 mg PO TID 04/24/21 06/03/21 History cholecalciferol (vitamin D3) 50 50 mcg PO DAILY 04/24/21 06/03/21 History mcg (2,000 unit) capsule (Vitamin D3) clotrimazole 10 mg ivan 10 mg MUCOUS MEMBRANE 5XD 04/24/21 06/03/21 History fluticasone propionate 50 2 spray INTRANASAL BID 04/24/21 06/03/21 History mcg/actuation nasal spray,suspension gabapentin 100 mg capsule 100 mg PO TID 04/24/21 06/03/21 History geriatric multivitamin-min 1 tab PO DAILY 04/24/21 06/03/21 History hydroxychloroquine 200 mg tablet 200 mg PO BID 04/24/21 06/03/21 History ivermectin 1 % topical cream 1 applic TOPICAL DAILY 04/24/21 06/03/21 History (Soolantra) lisinopril 40 mg tablet 40 mg PO DAILY 04/24/21 06/03/21 History magnesium oxide 500 mg capsule 500 mg PO DAILY 04/24/21 06/03/21 History mycophenolate mofetil 500 mg 500 mg PO BID 04/24/21 06/03/21 History tablet (CellCept) nitroglycerin 0.4 mg sublingual 0.4 mg SUBLINGUAL Q5-15M PRN 04/24/21 06/03/21 History tablet omeprazole 20 mg tablet,delayed 20 mg PO DAILY 04/24/21 06/03/21 History release pramoxine 1 % topical foam 1 applic [place] BID PRN 04/24/21 06/03/21 History spironolactone 25 mg tablet 25 mg PO DAILY 04/24/21 06/03/21 History tumeric 100 mg-carmela 150 mg-olive 1 cap PO DAILY 04/24/21 06/03/21 History 50 mg-oreg 150 mg-caprylate capsule nitrofurantoin 100 mg PO 06/03/21 History monohydrate/macrocrystals 100 mg capsule Allergies Allergy/AdvReac Type Severity Reaction Status Date / Time nickel Allergy Intermediate Redness of Verified 04/24/21 10:47 Skin ciprofloxacin [From Cipro] Allergy Verified 04/24/21 10:47 Sulfa (Sulfonamide Allergy Verified 04/24/21 10:47 Antibiotics) Review of Systems Review of Systems Narrative: 14 systems reviewed and negative aside from what is noted in HPI Exam Vital Signs (past 8 hours): - 06/03/21 22:43 06/04/21 04:22 Temperature 97.7 F 96.9 F L Pulse Rate 78 71 Respiratory Rate 18 18 Blood Pressure 93/61 131/80 Pulse Oximetry 98 96 Oxygen Delivery Method Room Air Narrative Exam Narrative: GEN: no acute distress HEENT: moist mucous membranes, PERRL NECK: trachea midline, no JVD CV: regular rate and rhythm, no murmurs PULM: clear bilaterally, no wheezes, rhonchi rales, ABD: soft, nontender, nondistended, no organomegaly, normal bowel sounds EXT: warm and well perfused with no edema, left upper extremity with swelling and bruising NEURO: awake, confused, delirious and speech often times difficult to follow, no other focal deficits, following commands PSYCH: pleasant, confused Objective Labs Result Diagrams: 06/04/21 05:06 06/04/21 05:06 Labs: Laboratory Results - last 24 hr 06/03/21 06/03/21 06/03/21 17:49 18:22 18:22 WBC 5.3 RBC 2.80 L Hgb 9.5 L Hct 27.7 L MCV 99.0 MCH 33.7 MCHC 34.1 RDW 13.1 Plt Count 233 Neut % (Auto) 68.7 Lymph % (Auto) 14.4 L [place] % (Auto) 12.5 Eos % (Auto) 3.7 Baso % (Auto) 0.7 Neut # (Auto) 3600 Lymph # (Auto) 800 L [place] # (Auto) 700 Eos # (Auto) 200 Baso # (Auto) 0 Sodium 129 L Potassium 4.4 Chloride 95 L Carbon Dioxide 27 BUN 14 Creatinine 1.01 Estimated GFR 53.1 L BUN/Creatinine Ratio 13.9 Glucose 95 Lactate Calcium 8.9 Total Bilirubin 0.2 AST 26 ALT 11 Alkaline Phosphatase 68 Total Creatine Kinase 55 CK-MB (CK-2) TNP CK-MB (CK-2) Rel Index TNP Troponin I < 0.012 Total Protein 6.9 Albumin 3.9 Globulin 3.0 Albumin/Globulin Ratio 1.3 TSH Prolactin 12.6 Urine RBC 5-10/hpf H Urine WBC 1-5/hpf Urine Bacteria Occasional (0-1) Ur Culture Indicated? Culture not indicate Salicylates < 1.0 Acetaminophen < 10 L Ethyl Alcohol < 10 SARS-CoV-2 (PCR) 06/03/21 06/03/21 06/03/21 18:22 18:22 20:00 WBC RBC Hgb Hct MCV MCH MCHC RDW Plt Count Neut % (Auto) Lymph % (Auto) [place] % (Auto) Eos % (Auto) Baso % (Auto) Neut # (Auto) Lymph # (Auto) [place] # (Auto) Eos # (Auto) Baso # (Auto) Sodium Potassium Chloride Carbon Dioxide BUN Creatinine Estimated GFR BUN/Creatinine Ratio Glucose Lactate 1.0 Calcium Total Bilirubin AST ALT Alkaline Phosphatase Total Creatine Kinase CK-MB (CK-2) CK-MB (CK-2) Rel Index Troponin I Total Protein Albumin Globulin Albumin/Globulin Ratio TSH 2.65 Prolactin Urine RBC Urine WBC Urine Bacteria Ur Culture Indicated? Salicylates Acetaminophen Ethyl Alcohol SARS-CoV-2 (PCR) Negative 06/04/21 06/04/21 05:06 05:06 WBC 3.2 L RBC 2.35 L Hgb 7.9 L Hct 23.4 L MCV 99.4 MCH 33.5 MCHC 33.7 RDW 13.4 Plt Count 187 Neut % (Auto) 59.0 Lymph % (Auto) 19.0 L [place] % (Auto) 15.5 H Eos % (Auto) 5.8 H Baso % (Auto) 0.7 Neut # (Auto) 1900 Lymph # (Auto) 600 L [place] # (Auto) 500 Eos # (Auto) 200 Baso # (Auto) 0 Sodium 128 L Potassium 3.9 Chloride 100 Carbon Dioxide 29 BUN 10 Creatinine 0.83 Estimated GFR > 60.0 BUN/Creatinine Ratio 12.0 Glucose 78 L Lactate Calcium 8.2 L Total Bilirubin AST ALT Alkaline Phosphatase Total Creatine Kinase CK-MB (CK-2) CK-MB (CK-2) Rel Index Troponin I Total Protein Albumin Globulin Albumin/Globulin Ratio TSH Prolactin Urine RBC Urine WBC Urine Bacteria Ur Culture Indicated? Salicylates Acetaminophen Ethyl Alcohol SARS-CoV-2 (PCR) Assessment & Plan Assessment & Plan narrative: 1. Acute delirium on chronic dementia -etiology not clear -possibly related to improving UTI, for now will continue antibiotics with IV ceftriaxone to complete course ---other considerations include possible med effect, will hold hydroxychloroquine for now as can cause neuro effects -check lactate -ordered IV fluids for hyponatremia, patient appears to have chronic hyponatremia and therefore think this is less likely as etiology -other possibility is acute intracranial event, CT head negative, ordered for MRI -finally could be progressing dementia, or psychiatric illness if these other etiologies return as negative 2. HTN -continue lisinopril 3. Sjogren's -continue MMF, cevimeline for now, check with pharmacy about likelihood of med effect but these seem to be chronic meds -hold hydroxychloroquine for now CODE: patient too confused to decide, need to confirm with granddaughter Proxy: Tia Statia, granddaughter I have utilized all available resources to reconcile the patient's home medications Time Spent With Patient Critical Care time: I spent a total of [] minutes of critical care time on this patient's care today; this time is exclusive of procedural time. Quality VTE Deep Vein Thrombosis/Pulmonary Embolism Present on Admission: No MIPS - Admit I confirm the patient?s Advance Care Plan is present, Code status is documented, Surrogate decision maker is in patient?s record [If Yes, STOP here]: Yes
[2021-06-04] MEDS: ENOXAPARIN 40 MG/0.4 ML SYRINGE SUBCUT (09:51)
[2021-06-04] MEDS: ASPIRIN EC 81 MG TABLET PO (09:52)
[2021-06-04] MEDS: lisinopriL 20 MG TABLET 40 MG PO (09:52)
[2021-06-04] MEDS: MYCOPHENOLATE MOFETIL 500 MG TABLET PO ×2 (10:02→21:36)
[2021-06-04 11:19] LABS: Ammonia (NH3) < 9 umol/L (9-30)
[2021-06-04] MEDS: haloperidoL 1 MG TABLET PO (14:37)
--- NOTE | 2021-06-04 14:46 | PC.NURSE ---
Addendum entered by Yolette Nunn R.N. 06/04/21 18:50: Pt medicated Addendum entered by Yolette Nunn R.N. 06/04/21 18:48: \Pt more settled at this Original Note: Lungs clear, SpO2 95% RA Denies discomfort when asked. Pt dementia increasing over day. Seeing little army men that are chasing her Calling 911 Gradually escalating. Med w/haldol 1mg po at 1440 Will assess. Call light w/in reach, bed alarm on for pt safety. Continue w/plan of care.
--- NOTE | 2021-06-04 15:52 | PM.PN.1 ---
Subjective Subjective Date Patient Seen: 06/04/21 Time Patient Seen: 15:53 Interval history: 75 year old female admitted with paranoid ideation and hallucinations. Patient was being treated for UTI, however no other toxic/metabolic issues are evident currently. MRI unremarkable without acute etiologies thus far. She noted to nursing staff green men in her room today, improved after a low dose PO haldol was given because she was very afriad. She has paranoid ideations about her family and some staff. She believes her granddaughter is against her and that they (could not get patient to specify who they are) are trying to kill her. Exam Vital Signs (past 8 hours): - 06/04/21 09:00 06/04/21 09:50 06/04/21 09:52 Pulse Rate 87 Respiratory Rate 16 Blood Pressure 132/54 L Pulse Oximetry 96 96 06/04/21 13:00 Pulse Rate Respiratory Rate Blood Pressure Pulse Oximetry 96 Oxygen Delivery Method Room Air Narrative Exam Narrative: GEN: no acute distress HEENT: moist mucous membranes, PERRL NECK: trachea midline, no JVD CV: regular rate and rhythm, no murmurs PULM: clear bilaterally, no wheezes, rhonchi rales, ABD: soft, nontender, nondistended, no organomegaly, normal bowel sounds EXT: warm and well perfused with no edema, left upper extremity with swelling and bruising NEURO: awake, alert, no focal deficits. PSYCH: pleasant but confused. Paranoid ideations and did mention prior hallucinations during interview. Objective Labs Result Diagrams: 06/04/21 05:06 06/04/21 05:06 Labs: Laboratory Results - last 24 hr 06/03/21 06/03/21 06/03/21 17:49 18:22 18:22 WBC 5.3 RBC 2.80 L Hgb 9.5 L Hct 27.7 L MCV 99.0 MCH 33.7 MCHC 34.1 RDW 13.1 Plt Count 233 Neut % (Auto) 68.7 Lymph % (Auto) 14.4 L [place] % (Auto) 12.5 Eos % (Auto) 3.7 Baso % (Auto) 0.7 Neut # (Auto) 3600 Lymph # (Auto) 800 L [place] # (Auto) 700 Eos # (Auto) 200 Baso # (Auto) 0 Sodium 129 L Potassium 4.4 Chloride 95 L Carbon Dioxide 27 BUN 14 Creatinine 1.01 Estimated GFR 53.1 L BUN/Creatinine Ratio 13.9 Glucose 95 Lactate Calcium 8.9 Total Bilirubin 0.2 AST 26 ALT 11 Alkaline Phosphatase 68 Ammonia Total Creatine Kinase 55 CK-MB (CK-2) TNP CK-MB (CK-2) Rel Index TNP Troponin I < 0.012 Total Protein 6.9 Albumin 3.9 Globulin 3.0 Albumin/Globulin Ratio 1.3 TSH Prolactin 12.6 Urine RBC 5-10/hpf H Urine WBC 1-5/hpf Urine Bacteria Occasional (0-1) Ur Culture Indicated? Culture not indicate Salicylates < 1.0 Acetaminophen < 10 L Ethyl Alcohol < 10 SARS-CoV-2 (PCR) 06/03/21 06/03/21 06/03/21 18:22 18:22 20:00 WBC RBC Hgb Hct MCV MCH MCHC RDW Plt Count Neut % (Auto) Lymph % (Auto) [place] % (Auto) Eos % (Auto) Baso % (Auto) Neut # (Auto) Lymph # (Auto) [place] # (Auto) Eos # (Auto) Baso # (Auto) Sodium Potassium Chloride Carbon Dioxide BUN Creatinine Estimated GFR BUN/Creatinine Ratio Glucose Lactate 1.0 Calcium Total Bilirubin AST ALT Alkaline Phosphatase Ammonia Total Creatine Kinase CK-MB (CK-2) CK-MB (CK-2) Rel Index Troponin I Total Protein Albumin Globulin Albumin/Globulin Ratio TSH 2.65 Prolactin Urine RBC Urine WBC Urine Bacteria Ur Culture Indicated? Salicylates Acetaminophen Ethyl Alcohol SARS-CoV-2 (PCR) Negative 06/04/21 06/04/21 06/04/21 05:06 05:06 10:24 WBC 3.2 L RBC 2.35 L Hgb 7.9 L Hct 23.4 L MCV 99.4 MCH 33.5 MCHC 33.7 RDW 13.4 Plt Count 187 Neut % (Auto) 59.0 Lymph % (Auto) 19.0 L [place] % (Auto) 15.5 H Eos % (Auto) 5.8 H Baso % (Auto) 0.7 Neut # (Auto) 1900 Lymph # (Auto) 600 L [place] # (Auto) 500 Eos # (Auto) 200 Baso # (Auto) 0 Sodium 128 L Potassium 3.9 Chloride 100 Carbon Dioxide 29 BUN 10 Creatinine 0.83 Estimated GFR > 60.0 BUN/Creatinine Ratio 12.0 Glucose 78 L Lactate Calcium 8.2 L Total Bilirubin AST ALT Alkaline Phosphatase Ammonia < 9 L Total Creatine Kinase CK-MB (CK-2) CK-MB (CK-2) Rel Index Troponin I Total Protein Albumin Globulin Albumin/Globulin Ratio TSH Prolactin Urine RBC Urine WBC Urine Bacteria Ur Culture Indicated? Salicylates Acetaminophen Ethyl Alcohol SARS-CoV-2 (PCR) PFSH Medical History Arthritis Autoimmune disease Congestive heart failure COPD (chronic obstructive pulmonary disease) Hypertension Surgical History No pertinent past surgical history Social History household members: none Smoking Status: Never smoker alcohol intake: former Assessment & Plan Assessment & Plan narrative: 1. Possible acute delirium on chronic dementia -possibly related to improving UTI, for now will continue antibiotics with IV ceftriaxone to complete course ---other considerations include possible med effect, will hold hydroxychloroquine for now as can cause neuro effects -ordered IV fluids for hyponatremia, patient appears to have chronic hyponatremia and therefore think this is less likely as etiology. IV fluid discontinued today. -other possibility is acute intracranial event, CT head negative and now MRI is unremarkable. -likely represents a progressing dementia with hallucinations and paranoia. Will ask psychiatry for assistance with medications. 2. HTN -continue lisinopril 3. Sjogren's -continue MMF, cevimeline for now, check with pharmacy about likelihood of med effect but these seem to be chronic meds -hold hydroxychloroquine for now CODE: patient too confused to decide, need to confirm with granddaughter however unavailable currently. Proxy: Mariluz Statmegan, granddaughter I have utilized all available resources to reconcile the patient's home medications Time Spent With Patient Critical Care time: I spent a total of [] minutes of critical care time on this patient's care today; this time is exclusive of procedural time. Quality VTE Deep Vein Thrombosis/Pulmonary Embolism Present on Admission: No
--- NOTE | 2021-06-04 16:34 | CM.DPC ---
DCP continued: CM attempted to meet with the patient but the patient was having auditory and visual hallucinations of [employer] men attacking her. CM Called the patients granddajulián Ryan at [phone] to get a better idea of what was happening with the patient prior to admission as well as work on a safe discharge plan for the patient when she is medically stable. According to her granddaughter the patient has been living independently since March 2021 and is usually independent with all ADLs. patients granddaughter does visit her every other day and dose provide transportation for the patient as needed. however patient started with confusion about 5 days ago and then started with full hallucinations for the last few days. patient started on ABX for her UTI around the same time as the hallucinations started. DELIA updated hospitalist Dr. Chase about this fact. Currently the patients granddaughter is concerned and not sure how to help her with the delirium but if that clears she thinks SNF or HH would be the best options for the patient Delia will follow up with KIRSTEN Ruvalcaba for clarification on DC plan. EDLIA was also told that olga CURTIS is her son Jordon Wei [phone] [facility] and will call him again tomorrow to work on safe DC plan. Yenny peters RNmanager community development
--- NOTE | 2021-06-04 17:39 | P.CONS_ITS ---
History of Present Illness Consult details Date Patient Seen: 06/04/21 Time Patient Seen: 17:15 Chief complaint: UTI, delusional Reason for consult: Treatment recommendations Requesting provider: Austin Chase Narrative: HOSPITAL COURSE: Brought to the emergency room by family for altered mental status including a uditory and visual hallucinations on 06/03/21. Reporting auditory and visual hallucinations worse over the course of days, following starting antibiotics for UTI. Admitted medically, for workup of delirium. Head CT unremarkable, brain MRI without acute etiology, chronic volume and microvascular changes noted. Chronic diagnosis of Sjogren's, MMF, cevimeline continued in the hospital and holding hydroxychloroquine for now due to concern for neurologic side effects. Chart review shows ER visit on 04/24/19 to with complaints about being short of breath and unsteady, no mental status changes, slight dysuria reported, diarrhea reported, chronic low sodium. COLLATERAL FROM STAFF: Reports of seeing tiny green men, somewhat agitated, has called 911 Received dose of Haldol 1 mg p.o. 2:00 a.m. today which has been helpful. 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 Id confusion started 5 days ago with hallucinations after starting on antibiotics. INTERVIEW: Patient states that she just woke up, feeling a little scattered due to that. Launches into concerns about family members including Mary doing something bad. Reports that he used to be a very big help but seems to be changing recently, concerns that she took money out of her bank account. States that her son is coming to help her and this helps her to feel better. States that before she fell asleep, she was feeling very bad, ?I thought I was going to ?. When asked if she felt safe here, she asked me to close the door and mentions things about Mary and games they play being bad and unsafe. Reports feeling that things were moved around in the room intermittently. Believe she has been in the hospital at least 4 days. First identifies this as nurse would be Hospital and later corrects to say [facility]. Identifies date as May, around the 2021. When asked to count backwards from 20, she has a couple of mixed ups of numbers but can sustain attention down to 0. States that she is starting to feel better, and is very hopeful. Feels better that her son is coming to help her. States that her son lives in [place] and that she may move there. Mentions a really bad UTI in the past, and reports that causing a lot of problems. 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 reports living independently over the past 2 months DEVELOPMENTAL HISTORY: Unable to assess due to confusion SIGNIFICANT MEDICAL HISTORY: Sjogren's syndrome, CHF, COPD, hypertension Meds Home Medications and Allergies Home Medications Medication Instructions Recorded Confirmed Type albuterol sulfate 90 mcg/actuation 1 - 2 inh INHALATION Q4HR PRN 04/24/21 06/03/21 History aerosol inhaler aspirin 81 mg tablet 81 mg PO DAILY 04/24/21 06/03/21 History calcium carbonate 500 mg calcium 1,000 mg PO DAILY 04/24/21 06/03/21 History (1,250 mg) tablet carboxymethylcellulose sodium 0.5 1 drp OPHTHALMIC (EYE) BID PRN 04/24/21 06/03/21 History % eye drops in a dropperette (Refresh Plus) carvedilol 25 mg tablet 85 mg PO BIDAC 04/24/21 06/03/21 History cevimeline 30 mg capsule 30 mg PO TID 04/24/21 06/03/21 History cholecalciferol (vitamin D3) 50 50 mcg PO DAILY 04/24/21 06/04/21 History mcg (2,000 unit) capsule (Vitamin D3) clotrimazole 10 mg ivan 10 mg MUCOUS MEMBRANE 5XD 04/24/21 06/03/21 History fluticasone propionate 50 2 spray INTRANASAL BID 04/24/21 06/03/21 History mcg/actuation nasal spray,suspension gabapentin 100 mg capsule 100 mg PO TID 04/24/21 06/03/21 History geriatric multivitamin-min 1 tab PO DAILY 04/24/21 06/03/21 History hydroxychloroquine 200 mg tablet 200 mg PO BID 04/24/21 06/03/21 History ivermectin 1 % topical cream 1 applic TOPICAL DAILY 04/24/21 06/03/21 History (Soolantra) lisinopril 40 mg tablet 40 mg PO DAILY 04/24/21 06/03/21 History magnesium oxide 500 mg capsule 500 mg PO DAILY 04/24/21 06/03/21 History mycophenolate mofetil 500 mg 500 mg PO BID 04/24/21 06/03/21 History tablet (CellCept) nitroglycerin 0.4 mg sublingual 0.4 mg SUBLINGUAL Q5-15M PRN 04/24/21 06/03/21 History tablet omeprazole 20 mg tablet,delayed 20 mg PO DAILY 04/24/21 06/03/21 History release pramoxine 1 % topical foam 1 applic [place] BID PRN 04/24/21 06/03/21 History spironolactone 25 mg tablet 25 mg PO DAILY 04/24/21 06/03/21 History tumeric 100 mg-carmela 150 mg-olive 1 cap PO DAILY 04/24/21 06/03/21 History 50 mg-oreg 150 mg-caprylate capsule nitrofurantoin 100 mg PO 06/03/21 History monohydrate/macrocrystals 100 mg capsule Allergies Allergy/AdvReac Type Severity Reaction Status Date / Time nickel Allergy Intermediate Redness of Verified 04/24/21 10:47 Skin ciprofloxacin [From Cipro] Allergy Verified 04/24/21 10:47 Sulfa (Sulfonamide Allergy Verified 04/24/21 10:47 Antibiotics) Exam Vital Signs (past 8 hours): - 06/04/21 09:50 06/04/21 09:52 06/04/21 13:00 Pulse Rate 87 Respiratory Rate 16 Blood Pressure 132/54 L Pulse Oximetry 96 96 Oxygen Delivery Method Room Air Narrative Exam Narrative: MENTAL STATUS EXAM Appearance: leach hair partially curled; wearing hospital garb & glasses, hearing aids in place, appears stated age, swelling & ecchymosis noted in L hand Behavior: Calm, cooperative, good eye contact, slight psychomotor slowing, slight tremor visible in hands at times Speech: Normal rate & volume Mood: a little better now Affect: Congruent with content, anxious Thought Process: perseverative, slightly disorganized Thought Content: No evidence of SI/HI, denies hallucinations currently (+recent VH), +paranoia and likely delusional content Attention: Attentive to interview; can sustain attention counting backwards from 20 Orientation: Oriented to self, to place as hospital in [place] to date as May, probably 23rd, 2022 Memory: poor for recent events, difficult to assess for remote events Insight: Limited Judgment: Limited Objective Labs Result Diagrams: 06/04/21 05:06 06/04/21 05:06 Labs: Laboratory Results - last 24 hr 06/03/21 06/03/21 06/03/21 17:49 18:22 18:22 WBC 5.3 RBC 2.80 L Hgb 9.5 L Hct 27.7 L MCV 99.0 MCH 33.7 MCHC 34.1 RDW 13.1 Plt Count 233 Neut % (Auto) 68.7 Lymph % (Auto) 14.4 L [place] % (Auto) 12.5 Eos % (Auto) 3.7 Baso % (Auto) 0.7 Neut # (Auto) 3600 Lymph # (Auto) 800 L [place] # (Auto) 700 Eos # (Auto) 200 Baso # (Auto) 0 Sodium 129 L Potassium 4.4 Chloride 95 L Carbon Dioxide 27 BUN 14 Creatinine 1.01 Estimated GFR 53.1 L BUN/Creatinine Ratio 13.9 Glucose 95 Lactate Calcium 8.9 Total Bilirubin 0.2 AST 26 ALT 11 Alkaline Phosphatase 68 Ammonia Total Creatine Kinase 55 CK-MB (CK-2) TNP CK-MB (CK-2) Rel Index TNP Troponin I < 0.012 Total Protein 6.9 Albumin 3.9 Globulin 3.0 Albumin/Globulin Ratio 1.3 TSH Prolactin 12.6 Urine RBC 5-10/hpf H Urine WBC 1-5/hpf Urine Bacteria Occasional (0-1) Ur Culture Indicated? Culture not indicate Salicylates < 1.0 Acetaminophen < 10 L Ethyl Alcohol < 10 SARS-CoV-2 (PCR) 06/03/21 06/03/21 06/03/21 18:22 18:22 20:00 WBC RBC Hgb Hct MCV MCH MCHC RDW Plt Count Neut % (Auto) Lymph % (Auto) [place] % (Auto) Eos % (Auto) Baso % (Auto) Neut # (Auto) Lymph # (Auto) [place] # (Auto) Eos # (Auto) Baso # (Auto) Sodium Potassium Chloride Carbon Dioxide BUN Creatinine Estimated GFR BUN/Creatinine Ratio Glucose Lactate 1.0 Calcium Total Bilirubin AST ALT Alkaline Phosphatase Ammonia Total Creatine Kinase CK-MB (CK-2) CK-MB (CK-2) Rel Index Troponin I Total Protein Albumin Globulin Albumin/Globulin Ratio TSH 2.65 Prolactin Urine RBC Urine WBC Urine Bacteria Ur Culture Indicated? Salicylates Acetaminophen Ethyl Alcohol SARS-CoV-2 (PCR) Negative 06/04/21 06/04/21 06/04/21 05:06 05:06 10:24 WBC 3.2 L RBC 2.35 L Hgb 7.9 L Hct 23.4 L MCV 99.4 MCH 33.5 MCHC 33.7 RDW 13.4 Plt Count 187 Neut % (Auto) 59.0 Lymph % (Auto) 19.0 L [place] % (Auto) 15.5 H Eos % (Auto) 5.8 H Baso % (Auto) 0.7 Neut # (Auto) 1900 Lymph # (Auto) 600 L [place] # (Auto) 500 Eos # (Auto) 200 Baso # (Auto) 0 Sodium 128 L Potassium 3.9 Chloride 100 Carbon Dioxide 29 BUN 10 Creatinine 0.83 Estimated GFR > 60.0 BUN/Creatinine Ratio 12.0 Glucose 78 L Lactate Calcium 8.2 L Total Bilirubin AST ALT Alkaline Phosphatase Ammonia < 9 L Total Creatine Kinase CK-MB (CK-2) CK-MB (CK-2) Rel Index Troponin I Total Protein Albumin Globulin Albumin/Globulin Ratio TSH Prolactin Urine RBC Urine WBC Urine Bacteria Ur Culture Indicated? Salicylates Acetaminophen Ethyl Alcohol SARS-CoV-2 (PCR) PFSH Medical History Arthritis Autoimmune disease Congestive heart failure COPD (chronic obstructive pulmonary disease) Hypertension Surgical History No pertinent past surgical history Social History household members: none Tobacco & Substance Use Smoking Status: Never smoker alcohol intake: former Assessment & Plan Assessment and plan (1) Acute delirium: Status: Acute Assessment & Plan narrative: ASSESSMENT: Nidia Wei is a 75-year-old female with Sjogren's, CHF, COPD, hypertension, and recent UTI admitted for altered mental status, acute delirium. There is reported history of dementia. Her clinical presentation today is consistent with acute delirium, if mental status has worsened over the course of weeks or days this is more consistent with delirium than progressing dementia process. Some response to Haldol is encouraging, I think this could be used very appropriately and safely this case for agitation associated with delirium. DIAGNOSES: Acute delirium, unknown etiology, suspect contribution from urinary tract infection History of dementia process Recent urinary tract infection RECOMMENDATIONS: 1. Haldol: Continue 1 mg p.o. q.6 hours as needed for agitation. OK to use tonight if agitation is interfering with sleep. 2. Delirium precautions as you are doing to include: -avoid deliriogenic medications, especially benzodiazepines, anticholinergics, opiate pain medications were possible -frequently orientation, including visual or hearing aids if needed -regulate sleep-wake cycles much as possible including minimizing interruptions overnight, access to natural daylight during the day 3. Agree with holding hydroxychloroquine for now to avoid worsening delirium Thank you for involving me in this patient's care. We do not have psychiatric consultation services available over the weekend. However, if additional support is needed an option is the Psychiatric Consultation Line [email or web address] ([phone]), [email or web address] I will check-in with the team on Monday06/07/21 if patient is still admitted Time Spent With Patient Time with patient: less than 30 minutes
[2021-06-04] MEDS: HALOPERIDOL 5 MG/ML VIAL 2 MG IV (20:44)
[2021-06-04] MEDS: cefTRIAXone 1,000 MG in SODIUM CHLORIDE 0.9% 100 ML 200 ML IV (21:36)
[2021-06-05] VITALS (10 sets, daily range): BP systolic 119–165; BP diastolic 46–76; PULSE 62–76; RESP 17–20; TEMP 36.2–37.3; O2SAT 93–99
--- NOTE | 2021-06-05 07:49 | P.PN_ITS ---
Subjective Subjective Interval history: She is seen in her room today to follow-up her urinary tract infection and confusion. The white blood count is 3.2. The hemoglobin has dropped from 9.5 down to to 7.9. Subsequently today it is back up to 9.4. The sodium level has dropped from 128 down to 126. She will need a fluid restriction placed. The renal function is normal. She remains confused but no longer actively delusional. Exam Vital Signs (past 8 hours): - 06/05/21 05:32 Temperature 98.4 F Pulse Rate 69 Respiratory Rate 18 Blood Pressure 130/46 L Pulse Oximetry 96 Oxygen Delivery Method Room Air Oxygen Flow Rate 0 Narrative Exam Narrative: Alert and oriented to her name. No apparent distress Heart is regular rate and rhythm without murmur Lungs are clear to auscultation bilaterally Abdomen is soft, bowel sounds positive, nontender, no organomegaly. There is no ankle edema Objective Labs Result Diagrams: 06/05/21 09:40 06/05/21 09:40 Labs: Laboratory Results - last 24 hr 06/04/21 10:24 Ammonia < 9 L PFSH Medical History Arthritis Autoimmune disease Congestive heart failure COPD (chronic obstructive pulmonary disease) Hypertension Surgical History No pertinent past surgical history Social History household members: none Smoking Status: Never smoker alcohol intake: former Assessment & Plan Assessment & Plan narrative: 1. Acute delirium on chronic dementia -UTI with 20,000 - 30,000 gram+ cocci, for now will continue IV ceftriaxone pending ID and sensitivities ---other considerations include possible med effect, will hold hydroxychloroquine for now as can cause neuro effects -ordered IV fluids for hyponatremia, patient appears to have chronic hyponatremi a and therefore this is less likely as the etiology. IV fluid was stopped on 06/04 -other possibility is acute intracranial event, CT head negative? and now MRI is unremarkable. -likely represents a progressing dementia with hallucinations and paranoia. Appreciate Psychiatry consult. He 2. HTN -continue lisinopril 3. Sjogren's -continue MMF, cevimeline for now, check with pharmacy about likelihood of med effect but these seem to be chronic meds -holding hydroxychloroquine for now 4. UTI -Gram+ cocci with ID and sensitivities pending -Unclear if this is an unrelated bacteriuria or actual UTI. The colony counts (20K-30K)are not high enough to confirm a UTI but will continue Ceftriaxone for now. 5. Hyponatremia -Na dropped from 128 to 126 when IVF was stopped. -Begin 1,500 fluid restriction and resume IV NS if it continues to drop. CODE: patient too confused to decide, need to confirm with granddaughter however unavailable currently. Proxy: Mariluz Statmegan, granddaughter Time Spent With Patient Critical Care time: I spent a total of [] minutes of critical care time on this patient's care today; this time is exclusive of procedural time. Quality VTE Deep Vein Thrombosis/Pulmonary Embolism Present on Admission: No
[2021-06-05] MEDS: ASPIRIN EC 81 MG TABLET PO (09:16)
[2021-06-05] MEDS: lisinopriL 20 MG TABLET 40 MG PO (09:16)
[2021-06-05] MEDS: MYCOPHENOLATE MOFETIL 500 MG TABLET PO ×2 (09:17→22:20)
[2021-06-05] MEDS: ENOXAPARIN 40 MG/0.4 ML SYRINGE SUBCUT (09:17)
[2021-06-05 10:43] LABS: Add Manual Diff / Slide Review NO; Basophils Absolute Auto 0 /uL (0-100); Basophils Percent Auto 0.9 % (0-2); Eosinophils Absolute Auto 100 /uL (0-450); Eosinophils Percent Auto 3.1 % (2-4); Hematocrit 27.7 % (36-46); Hemoglobin 9.4 g/dL (12.0-16.0); Lymphocytes Absolute Auto 500 /uL (1100-4500); Lymphocytes Percent Auto 11.9 % (25-40); Mean Corpuscular HGB Conc 34.1 % (30-36); Mean Corpuscular Hemoglobin 33.9 PG (26-34); Mean Corpuscular Volume 99.4 fL (80-100); Monocytes Absolute Auto 600 /uL (0-900); Monocytes Percent Auto 14.2 % (3-14); Neutrophils Absolute Auto 2700 /uL (1500-7000); Neutrophils Percent Auto 69.9 % (50-75); Platelet Count 233 X10^3/uL (150-400); Red Blood Cell Count 2.78 X10^6/uL (4.0-5.2); Red Cell Distribution Width 13.3 % (11.6-14.8); White Blood Cell Count 3.9 X10^3/uL (4.5-11.0)
[2021-06-05 11:13] LABS: BUN Creatinine Ratio 10.7 (6-22); Blood Urea Nitrogen 8 mg/dL (7-17); Calcium 8.7 mg/dL (8.4-10.2); Carbon Dioxide 29 mmol/L (22-32); Chloride 93 mmol/L (98-107); Estimated Glomerular Filt Rate > 60.0 mL/min (>60); Glucose 104 mg/dL (80-110); HEMOLYSIS < 15 (0-50); Potassium 4.5 mmol/L (3.4-5.1); Sodium 126 mmol/L (137-145)
--- NOTE | 2021-06-05 15:14 | PC.NURSE ---
Pt sitting in chair all afternoon. ' Denies discomfort, Lungs clear, SpO2 94% RA Presents much clearer than yesterday, No hallucinations noted. SL intact/patent. Call light w/in reach, chair alarm on for pt safety. Continue w/plan of care.
--- NOTE | 2021-06-05 16:12 | CM.DPC ---
CM spoke with the patient at the bedside she was much clearer with no hallucinations. when asked about DC planning with the patient who stated she wanted to go home with HH when she is medically ready for DC. Patient confirmed her DPOA is her son Jordon and she is okay with staff talking to her granddaughter Mairluz. Cm attempted to call the patients son Jordon (DPOA) [phone] not able to reach him and lVM asking him to call CM back to disscuss his mother and her DC plans. Current plan home with HH no preference on company- department will reconfirm this with the patient and get F2F signed and HH set up prior to patient DC. Yenny peters RNremelt furnace expediter
[2021-06-05] MEDS: cefTRIAXone 1,000 MG in SODIUM CHLORIDE 0.9% 100 ML 200 ML IV (22:20)
[2021-06-06] VITALS (11 sets, daily range): BP systolic 118–138; BP diastolic 60–87; PULSE 63–110; RESP 16–20; TEMP 36.2–37.5; O2SAT 94–99
[2021-06-06 06:12] LABS: Add Manual Diff / Slide Review NO; Basophils Absolute Auto 0 /uL (0-100); Basophils Percent Auto 0.8 % (0-2); Eosinophils Absolute Auto 200 /uL (0-450); Eosinophils Percent Auto 4.1 % (2-4); Hematocrit 26.2 % (36-46); Hemoglobin 8.8 g/dL (12.0-16.0); Lymphocytes Absolute Auto 600 /uL (1100-4500); Lymphocytes Percent Auto 15.2 % (25-40); Mean Corpuscular HGB Conc 33.6 % (30-36); Mean Corpuscular Hemoglobin 33.4 PG (26-34); Mean Corpuscular Volume 99.3 fL (80-100); Monocytes Absolute Auto 600 /uL (0-900); Monocytes Percent Auto 16.6 % (3-14); Neutrophils Absolute Auto 2300 /uL (1500-7000); Neutrophils Percent Auto 63.3 % (50-75); Platelet Count 213 X10^3/uL (150-400); Red Blood Cell Count 2.64 X10^6/uL (4.0-5.2); Red Cell Distribution Width 13.1 % (11.6-14.8); White Blood Cell Count 3.7 X10^3/uL (4.5-11.0)
[2021-06-06 08:05] LABS: Blood Urea Nitrogen 8 mg/dL (7-17); Calcium 8.3 mg/dL (8.4-10.2); Carbon Dioxide 26 mmol/L (22-32); Chloride 94 mmol/L (98-107); Estimated Glomerular Filt Rate > 60.0 mL/min (>60); Glucose 86 mg/dL (80-110); HEMOLYSIS < 15 (0-50); Potassium 3.6 mmol/L (3.4-5.1); Sodium 123 mmol/L (137-145)
[2021-06-06] MEDS: MYCOPHENOLATE MOFETIL 500 MG TABLET PO ×2 (10:06→21:20)
[2021-06-06] MEDS: ENOXAPARIN 40 MG/0.4 ML SYRINGE SUBCUT (10:06)
[2021-06-06] MEDS: lisinopriL 20 MG TABLET 40 MG PO (10:06)
[2021-06-06] MEDS: ASPIRIN EC 81 MG TABLET PO (10:06)
--- NOTE | 2021-06-06 16:03 | P.PN_ITS ---
Subjective Subjective Date Patient Seen: 06/06/21 Time Patient Seen: 08:00 Interval history: Today she feels much improved. She appears to be much less confused than on day of admission Exam Vital Signs (past 8 hours): - 06/06/21 10:06 06/06/21 11:00 06/06/21 15:02 Temperature 97.4 F L 97.4 F L Pulse Rate 81 63 84 Respiratory Rate 20 19 Blood Pressure 118/66 138/65 121/60 Pulse Oximetry 99 96 Oxygen Delivery Method Room Air Oxygen Flow Rate 0 Narrative Exam Narrative: GEN: No apparent distress CV: regular rate and rhythm without murmur PULM: clear to auscultation bilaterally ABD: soft, nontender, no organomegaly.? Objective Labs Result Diagrams: 06/06/21 05:26 06/06/21 05:26 Labs: Laboratory Results - last 24 hr 06/06/21 06/06/21 05:26 05:26 WBC 3.7 L RBC 2.64 L Hgb 8.8 L Hct 26.2 L MCV 99.3 MCH 33.4 MCHC 33.6 RDW 13.1 Plt Count 213 Neut % (Auto) 63.3 Lymph % (Auto) 15.2 L [place] % (Auto) 16.6 H Eos % (Auto) 4.1 H Baso % (Auto) 0.8 Neut # (Auto) 2300 Lymph # (Auto) 600 L [place] # (Auto) 600 Eos # (Auto) 200 Baso # (Auto) 0 Sodium 123 L Potassium 3.6 Chloride 94 L Carbon Dioxide 26 BUN 8 Creatinine 0.73 Estimated GFR > 60.0 BUN/Creatinine Ratio 11.0 Glucose 86 Calcium 8.3 L [facility] Medical History Arthritis Autoimmune disease Congestive heart failure COPD (chronic obstructive pulmonary disease) Hypertension Surgical History No pertinent past surgical history Social History household members: none Smoking Status: Never smoker alcohol intake: former Assessment & Plan Assessment & Plan narrative: 1. Acute delirium on chronic dementia -UTI with 20,000 - 30,000 proteus, for now will continue IV ceftriaxone pending ID and sensitivities ---other considerations include possible med effect, will hold hydroxychloroqu ine for now as can cause neuro effects -ordered IV fluids for hyponatremia, patient appears to have chronic hyponatremia and therefore this is less likely as the etiology. IV fluid was stopped on 06/04 -acute intracranial event rule out with CT head negative and now MRI is unremarkable. -with improvement with antibiotics likely represents UTI -appreciate psych consult 2. HTN -continue lisinopril 3. Sjogren's -continue MMF, cevimeline for now, check with pharmacy about likelihood of med effect but these seem to be chronic meds -holding hydroxychloroquine for now 4. UTI -proteus growing in urine -continue ceftriaxone for now 5. Hyponatremia -Na dropped from 128 to 126 to 123 when IVF was stopped. -Begin 1200 fluid restriction Time Spent With Patient Critical Care time: I spent a total of [] minutes of critical care time on this patient's care today; this time is exclusive of procedural time. Quality VTE Deep Vein Thrombosis/Pulmonary Embolism Present on Admission: No
--- NOTE | 2021-06-06 16:23 | CM.DPC ---
DCP Cont: Had Dr. Flor sign face to face, which was already filled out. Printed out order. Have not yet faxed referral to an agency, did not yet discuss with patient or family member as far as choices of home health. P: DCP to continue to follow. Plan is home with home health when stable. Face to face and orders are already completed. Judy Oliveira RN/Automotive Worker Foreman
[2021-06-06] MEDS: NYSTATIN SUSP 500,000 UNIT/5 ML UDC 500000 UNIT PO ×2 (16:54→21:21)
[2021-06-06] MEDS: cefTRIAXone 1,000 MG in SODIUM CHLORIDE 0.9% 100 ML 200 ML IV (21:20)
[2021-06-07 03:18] VITALS: BP 160/84; PULSE 82; RESP 18; TEMP 36.5; O2SAT 98
[2021-06-07 05:34] LABS: Hematocrit 28.7 % (36-46); Hemoglobin 9.8 g/dL (12.0-16.0); Mean Corpuscular HGB Conc 34.2 % (30-36); Mean Corpuscular Hemoglobin 33.5 PG (26-34); Mean Corpuscular Volume 97.9 fL (80-100); Platelet Count 231 X10^3/uL (150-400); Red Blood Cell Count 2.93 X10^6/uL (4.0-5.2); Red Cell Distribution Width 13.5 % (11.6-14.8); White Blood Cell Count 3.1 X10^3/uL (4.5-11.0)
[2021-06-07 05:47] LABS: BUN Creatinine Ratio 11.4 (6-22); Blood Urea Nitrogen 8 mg/dL (7-17); Calcium 8.5 mg/dL (8.4-10.2); Carbon Dioxide 24 mmol/L (22-32); Chloride 95 mmol/L (98-107); Estimated Glomerular Filt Rate > 60.0 mL/min (>60); Glucose 101 mg/dL (80-110); HEMOLYSIS < 15 (0-50); Potassium 3.6 mmol/L (3.4-5.1); Sodium 124 mmol/L (137-145)
--- NOTE | 2021-06-07 09:39 | P.DS_ITS ---
History of Present Illness History of Present Illness Chief complaint: UTI, delusional Narrative: Ms. Wei is a 75W with PMH Sjogren's, CHF, COPD, HTN who presents with altered mental status. Per family at bedside she has been having slow cognitive decline chronically. She was recently diagnosed with a UTI and started on Macrobid. She has reportedly had subjective fevers and chills and nausea. Most notably she has had quite descriptive visual and auditory hallucinations that have occurred only within the last 2-3 days. She is aware at times these are hallucinations, and at other times she is quite confused. No chest pain, shortness of breath. She has had diarrhea. She notes hitting her hand when trying to brace herself for being unbalanced. In the ED workup was done, vitals notable for slightly elevated blood pressure. Labs notable for Hgb 9.5, na 129, creatinine 1.01. Trop negative. UA showed 5-10 WBC, EtOH negative. Lactate 1.0. TSH 2.65. COVID negative. Ct head showed no acute process. Hand xray showed mildly displaced oblique fracture of the 5th metacarpal shaft. She ws given fluids and antibiotics and admitted for further treatment. 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 Acute encephalopathy 2. UTI 3. Dementia 4. Sjogren's 5. Hyponatremia, chronic, possible SIADH Hospital Course: Ms. Wei was admitted with hallucinations and confusion. She been diagnosed with a UTI the day prior to admission. However cultures here showed a resistance to macrobid, the antibiotic she was taking as an outpatient. She was ordered ceftriaxone here and improved. She is chronically hyponatremia, with initial fluid here, her sodium dropped. When putting her on a fluid restriction her sodium began to improve. She has possible SIADH and was encouraged to eat well and include salt, and to limit fluids. She was discharged with antibiotics and should follow up with her PCP within two weeks. CODE: DNR Exam Vital Signs (past 8 hours): Oxygen Delivery Method Room Air Oxygen Flow Rate 0 Narrative Exam Narrative: GEN: No apparent distress CV: regular rate and rhythm without murmur PULM: clear to auscultation bilaterally ABD: soft, nontender, no organomegaly.? Objective Labs Result Diagrams: 06/07/21 05:06 06/07/21 05:06 Labs: Laboratory Results - last 24 hr 06/07/21 06/07/21 05:06 05:06 WBC 3.1 L RBC 2.93 L Hgb 9.8 L Hct 28.7 L MCV 97.9 MCH 33.5 MCHC 34.2 RDW 13.5 Plt Count 231 Sodium 124 L Potassium 3.6 Chloride 95 L Carbon Dioxide 24 BUN 8 Creatinine 0.70 Estimated GFR > 60.0 BUN/Creatinine Ratio 11.4 Glucose 101 Calcium 8.5 PFSH Medical History Arthritis Autoimmune disease Congestive heart failure COPD (chronic obstructive pulmonary disease) Hypertension Surgical History No pertinent past surgical history Social History household members: none Smoking Status: Never smoker alcohol intake: former Discharge Plan Discharge Plan Patient Disposition: Home Health Service Provider Discharge Comment: Ms. Wei came in to the hospital with confusion. She had a urinary tract infection, and improved with antibiotics. She should take 5 more days of cefpodoxime to clear up the infection. She has chronically low sodium (salt) in her blood, she should make sure she eats well and has enough salt in her food. She should also be careful with drinking too much liquids. Discharge orders & Medications Prescriptions: New cefpodoxime 200 mg tablet 200 mg PO BID Qty: 10 0RF Rx Instructions: must administer with a meal/food Continued albuterol sulfate 90 mcg/actuation HFA aerosol inhaler 1 - 2 inh INHALATION Q4HR PRN (Reason: Wheezing) 0RF Label Comments: Inhale 1-2 puff using inhaler every four hours as needed clotrimazole 10 mg Johnathan 10 mg MUCOUS MEMBRANE 5XD 0RF Rx Instructions: up to 5 x day, do not chew carvedilol 25 mg tablet 85 mg PO BIDAC 0RF Label Comments: TAKE 1 TABLET BY MOUTH TWICE DAILY WITH MEALS spironolactone 25 mg Tablet 25 mg PO DAILY 0RF mycophenolate mofetil [CellCept] 500 mg Tablet 500 mg PO BID 0RF calcium carbonate 500 mg calcium (1,250 mg) Tablet 1,000 mg PO DAILY 0RF cevimeline 30 mg capsule 30 mg PO TID 0RF Label Comments: TAKE 1 CAPSULE BY MOUTH THREE TIMES DAILY nitroglycerin 0.4 mg Tablet, Sublingual 0.4 mg SUBLINGUAL Q5-15M PRN (Reason: Angina) 0RF Rx Instructions: do not exceed 3 doses per episode aspirin 81 mg Tablet 81 mg PO DAILY 0RF gabapentin 100 mg capsule 100 mg PO TID 0RF Label Comments: TAKE 1 CAPSULE BY MOUTH THREE TIMES DAILY. hydroxychloroquine 200 mg tablet 200 mg PO BID 0RF lisinopril 40 mg Tablet 40 mg PO DAILY 0RF fluticasone propionate 50 mcg/actuation spray,suspension 2 spray INTRANASAL BID 0RF Label Comments: USE 2 SPRAYS IN EACH NOSTRIL EVERY DAY Refresh Plus 0.5 % Dropperette 1 drp OPHTHALMIC (EYE) BID PRN (Reason: Dry Eyes) 0RF geriatric multivitamin-min Tablet 1 tab PO DAILY 0RF pramoxine 1 % Foam 1 applic IA BID PRN (Reason: hemmroid) 0RF magnesium oxide 500 mg Capsule 500 mg PO DAILY 0RF omeprazole 20 mg Tablet,Delayed Release (Dr/Ec) 20 mg PO DAILY 0RF cholecalciferol (vitamin D3) [Vitamin D3] 50 mcg (2,000 unit) Capsule 50 mcg PO DAILY 0RF ivermectin [Soolantra] 1 % Cream 1 applic TOPICAL DAILY 0RF bozhoct-hhbg-pbmwi-oreg-capryl 100 mg-150 mg- 50 mg-150 mg Capsule 1 cap PO DAILY 0RF Discontinued nitrofurantoin monohyd/m-cryst 100 mg capsule 100 mg PO 0RF Follow up/Referrals: Brittny Connor MD [Primary Care Provider] - Diet/Activity/Treatments Diet: Regular Diet comment: 2L fluid restriction Visit Report/Discharge Packet Instructions: DI for Urinary Tract Infection (UTI), DI for Hyponatremia, How to Prevent Falls Discharge Data Primary Care Provider: Brittny Connor VTE Deep Vein Thrombosis/Pulmonary Embolism Present on Admission: No
[2021-06-07 09:52] VITALS: PULSE 82; RESP 14; O2SAT 98
[2021-06-07 10:06] VITALS: BP 120/64; PULSE 85; RESP 18; TEMP 36.9; O2SAT 100
[2021-06-07] MEDS: NYSTATIN SUSP 500,000 UNIT/5 ML UDC 500000 UNIT PO (10:45)
[2021-06-07] MEDS: ENOXAPARIN 40 MG/0.4 ML SYRINGE SUBCUT (10:45)
[2021-06-07] MEDS: ASPIRIN EC 81 MG TABLET PO (10:46)
[2021-06-07] MEDS: MYCOPHENOLATE MOFETIL 500 MG TABLET PO (10:46)
[2021-06-07] MEDS: lisinopriL 20 MG TABLET 40 MG PO (10:46)
--- NOTE | 2021-06-07 12:28 | CM.DPC ---
DCP Discharge Home with HH Per , pt is stable and medically stable to d/c home with HH today. Pt/family did not have HH preference and SW called [facility] based on [facility] Calendar and pt living in [place] and made new referral and CC Shu kindly faxed clinicals to review and SW faxed MD Katharine orders (d/c summ not currently available) to [facility] to review. Per RN, pt's granddtr to provide transport home this afternoon and SW placed [facility] brochure in pt's d/c packet for home. SW called pt's Granddtr Tia and confirmed she is aware of pt's d/c to home today and SW updated it will be [facility] and brochure to come home with pt and she acknowledges understanding and plans to transport pt home around 1400 today after she is off work. Plan: Patient to d/c home via Granddtr POV around 1400 and [place] [facility] referral to follow to open pt to service after d/c. Sarah Starkey MSW
--- NOTE | 2021-06-07 14:57 | PC.NURSE ---
Discharge instructions and homecare handouts reviewed with patient and her granddaughter, they state understanding and have no further questions or concerns at this time. IV's dc'd intact. Instructed to call doctor with questions or concerns. Escorted out via wheelchair by BILINGUAL CASE MANAGER to discharge to home.
--- NOTE | 2021-06-12 15:26 | CM.DPC ---
SW received a call from pt stating she had discharged on 06/07/21 and was supposed to have HH but has not heard from HH yet. SW reviewed DCP discharge note and referral had been made to [facility]. YURI called [facility] and inquired about the referral and Nai confirms they received referral and she would review and confirm that they call pt and confirm start of care inez and will call SW back if any issues. YURI called pt [phone] back and left msg with this information. SD Preston
== END 2021-06-07 15:00 | disposition home or self-care (01) | DRG 690 ==
LOC: ED 18:04 → AC 21:09
PROVIDERS: Emergency Medicine; Family Medicine; Admitting Provider Internal Medicine; Emergency Provider Emergency Medicine; PCP Internal Medicine; Referring Provider Internal Medicine; Visit Provider Internal Medicine
DX: N39.0 Urinary tract infection, site not specified (principal); G93.40 Encephalopathy, unspecified; E22.2 Syndrome of inappropriate secretion of antidiuretic hormone; Z16.30 Resistance to unspecified antimicrobial drugs; F03.90 Unspecified dementia, unspecified severity, without behavioral disturbance, psychotic disturbance, mood disturbance, and anxiety; B96.1 Klebsiella pneumoniae [K. pneumoniae] as the cause of diseases classified elsewhere; I10 Essential (primary) hypertension; S62.327A Displaced fracture of shaft of fifth metacarpal bone, left hand, initial encounter for closed fracture; M35.00 Sjogren syndrome, unspecified; J44.9 Chronic obstructive pulmonary disease, unspecified; W22.8XXA Striking against or struck by other objects, initial encounter; Z20.822 Contact with and (suspected) exposure to COVID-19
CPT/HCPCS: 36415; 70450; 70551; 71045; 73130; 80048; 80053; 80320; 80329; 81003; 81015; 82140; 82550; 82962; 83605; 84146; 84443; 84484; 85025; 85027; 87040; 87077; 87086; 87186; 87635; 90792; 94760; 96360; 96361; 99284; C9803; G0378; G0480; J0696; J1630; J1650